=== PATIENT | female | born 1990 | race Hispanic/Latino ===

== ENCOUNTER 2019-11-03 16:23 | Emergency (ER) | payer OTHER ==
[2019-11-03 17:14] LABS: Absolute Lymphocytes (CBC) 0.5 K/uL (0.7-4.9); Basophils % 0.4 % (0-1.3); Hematocrit 41.6 % (36.0-45.0); Lymphocytes % 4.3 % (15.3-44.8); MPV 7.2 fL (7.6-11.3); RBC Red Blood Cell Count 5.28 M/uL (3.86-4.86)
[2019-11-03] MEDS ORDERED: MORPHINE 2 MG/ML SYR ONE (17:15)
[2019-11-03] MEDS ORDERED: ONDANSETRON 4 MG/2 ML VIAL ONE ×2 (17:15→19:32)
[2019-11-03] MEDS ORDERED: LORazepam 2 MG/ML VIAL ONE (17:15)
[2019-11-03] MEDS ORDERED: NA CHLORIDE 0.9% 1,000 ML ONE (17:18)
[2019-11-03 17:35] LABS: Blood Morphology Comment NOT SEEN (NOT SEEN); Platelet Estimate ADEQ; Urine White Blood Cell Casts OK
[2019-11-03] MEDS ORDERED: NA CHLORIDE 0.9% 200 ML IV ONE (17:36)
[2019-11-03] MEDS ORDERED: CEFTRIAXONE/SWI 1gm 1 GM/10 ML SYR ONE (17:37)
[2019-11-03 18:25] LABS: ALT/SGPT 24 U/L (12-78); AST/SGOT 18 U/L (15-37); Albumin 3.7 g/dL (3.4-5.0); Alkaline Phosphatase 99 U/L (45-117); BUN Blood Urea Nitrogen 8 mg/dL (7-18); Bicarbonate 26 mmol/L (21-32); Bilirubin Direct 0.2 mg/dL (0-0.2); Glucose Level 114 mg/dL (74-106); Lipase 67 U/L (73-393); Potassium 3.3 mmol/L (3.5-5.1); Protein, Total 8.2 g/dL (6.4-8.2); Sodium Level 138 mmol/L (136-145)
[2019-11-03 18:56] LABS: Urine Blood 1+ (NEG); Urine Glucose NEGATIVE (NEG); Urine Protein 2+ (NEG)
--- NOTE | 2019-11-03 18:56 | RAD REPORT ---
EXAM DESCRIPTION: US - Abdomen Exam Limited - 11/03/2019 6:20 pm CLINICAL HISTORY: EPIGASTRIC PAIN COMPARISON: No comparisons FINDINGS: No gallstones, sludge or other abnormalities within the gallbladder lumen. There is no wal l thickening or pericholecystic fluid. No common duct stone or biliary tree dilatation identified. IMPRESSION: Normal gallbladder and biliary tree ultrasound.
--- NOTE | 2019-11-03 19:06 | RAD REPORT ---
EXAM DESCRIPTION: CT - Abdomen Pelvis W Contrast - 11/03/2019 6:55 pm CLINICAL HISTORY: abdominal pain, fever, vomiting COMPARISON: No comparisons TECHNIQUE: Biphasic, helical CT imaging of the abdomen and pelvis was performed following 100 ml non -ionic IV contrast. No oral contrast administered. All CT scans are performed using dose optimization technique as appropriate and may include automated exposure control or mA/KV adjustment according to patient size. FINDINGS: No suspicious findings in the lung bases. No focal abnormality of the liver, spleen or pancreas. Liver attenuation is borderline to mild fatty infiltration. Gallbladder and biliary tree are also without suspicious finding. Gallstones can be occ ult on CT imaging. Earlier ultrasound of the gallbladder was unremarkable. Symmetric renal function is seen with no hydronephrosis or suspicious renal mass. No pyelonephritis o r acute parenchymal process. No bladder abnormalities. No adrenal abnormalities. Uterus and ovaries s how no suspicious findings. No dilated bowel loops or bowel wall thickening. No appendicitis findings. A few small mesenteric lym ph nodes are present. No free air, free fluid or inflammatory stranding. No hernia, mass or bulky ly mphadenopathy. No suspicious bony findings. IMPRESSION: Mild mesenteric adenitis or nonspecific enteritis pattern. No appendicitis or surgically emergent finding.
[2019-11-03 19:30] LABS: Urine Bacteria 20-50 /HPF (<20); Urine Culture Reflex Order REFLEXED; Urine Mucus 2+ /HPF (NONE SEEN)
[2019-11-03] MEDS ORDERED: ACETAMINOPHEN 500 MG TAB ONE (19:32)
[2019-11-03] MEDS ORDERED: IBUPROFEN 400 MG TAB ONE (20:27)
--- NOTE | 2019-11-03 21:21 | ER ---
Nurse's Notes [facility] Name: Fannie Mullins Age: 29 yrs Sex: Female : 1990 Arrival Date: 11/03/2019 Time: 16:26 Bed 19 Private MD: Diagnosis: Vomiting;Urinary tract infection, site not specified Presentation: 11/02 16:38 Chief complaint: Patient states: has had n/v and upper abd pain since yesterday, iw couldn't hold anything down last night, fever last night of 102, denies cough, SOB, denies urinary s/s. Coronavirus screen: Patient denies fever greater than 100.4F, cough, shortness of breath, or difficulty breathing. Proceed with normal triage process. Ebola Screen: Patient negative for fever greater than or equal to 101.5 degrees Fahrenheit, and additional compatible Ebola Virus Disease symptoms Patient denies exposure to infectious person. Patient denies travel to an Ebola-affected area in the 21 days before illness onset. No symptoms or risks identified at this time. Initial Sepsis Screen: Does the patient meet any 2 criteria? No. Patient's initial sepsis screen is negative. Does the patient have a suspected source of infection? No. Patient's initial sepsis screen is negative. Risk Assessment: Do you want to hurt yourself or someone else? Patient reports no desire to harm self or others. 16:38 Method Of Arrival: Ambulatory iw 16:38 Acuity: DARWIN 3 iw 17:06 Onset of symptoms was November 03, 2019. ca1 17:17 Acuity: DARWIN 2 ca1 [employer]: 17:30 LMP 10/20/2019 ca1 Historical: - Allergies: 16:41 robitussin; iw - Home Meds: 16:41 None [Active]; iw - PMHx: 16:41 None; iw - PSHx: 16:41 ; iw - Immunization history:: Adult Immunizations. - Social history:: Smoking status: . Screenin:04 Abuse screen: Denies threats or abuse. Denies injuries from another. Nutritional ca1 screening: No deficits noted. Tuberculosis screening: No symptoms or risk factors identified. Fall Risk IV access (20 points). Assessment: 17:04 General: Appears in no apparent distress. comfortable, Behavior is calm, cooperative, ca1 appropriate for age. Pain: Complains of pain in epigastric area, right upper quadrant and left upper quadrant Pain radiates to back Pain currently is 7 out of 10 on a pain scale. Pain began 1 day ago. Is intermittent. Neuro: Level of Consciousness is awake, alert, obeys commands, Oriented to person, place, time, situation, Appropriate for age. Cardiovascular: Heart tones S1 S2 present Capillary refill < 3 seconds Patient's skin is warm and dry. Respiratory: Airway is patent Respiratory effort is even, unlabored, Respiratory pattern is regular, symmetrical, Breath sounds are clear bilaterally. GI: Abdomen is round non-distended, Bowel sounds present X 4 quads. Abd is soft X 4 quads Abdomen is tender to palpation in epigastric area Reports nausea, vomiting, since yesterday. : No signs and/or symptoms were reported regarding the genitourinary system. EENT: No signs and/or symptoms were reported regarding the EENT system. Derm: Skin is intact, is healthy with good turgor, Skin is pink, warm \T\ dry. Musculoskeletal: Circulation, motion, and sensation intact. Capillary refill < 3 seconds. 18:04 Reassessment: Patient appears in no apparent distress at this time. Patient and/or ca1 family updated on plan of care and expected duration. Pain level reassessed. Patient is alert, oriented x 3, equal unlabored respirations, skin warm/dry/pink. US at bedside. 18:45 Reassessment: PT to CT via wheelchair. ca1 19:10 Reassessment: Patient appears in no apparent distress at this time. Patient and/or jb4 family updated on plan of care and expected duration. Pain level reassessed. Patient is alert, oriented x 3, equal unlabored respirations, skin warm/dry/pink. 20:00 Reassessment: Patient appears in no apparent distress at this time. Patient and/or jb4 family updated on plan of care and expected duration. Pain level reassessed. Patient is alert, oriented x 3, equal unlabored respirations, skin warm/dry/pink. 21:10 Reassessment: Patient appears in no apparent distress at this time. Patient and/or jb4 family updated on plan of care and expected duration. Pain level reassessed. Patient is alert, oriented x 3, equal unlabored respirations, skin warm/dry/pink. Patient states feeling better. 21:45 Reassessment: Patient appears in no apparent distress at this time. Patient and/or jb4 family updated on plan of care and expected duration. Pain level reassessed. Patient is alert, oriented x 3, equal unlabored respirations, skin warm/dry/pink. Pt reports feeling better. Verbalized understanding of d/c and follow up instructions. Denies questions or concerns. Ambulated out of ED with steady gait. Vital Signs: 16:38 BP 147 / 80; Pulse 125; Resp 16 S; Temp 99.5(O); Pulse Ox 99% on R/A; Weight 104.33 kg; iw Height 5 ft. 5 in. (165.10 cm); Pain 6/10; 17:10 BP 138 / 79; Pulse 129; Resp 17; Temp 100.9(O); Pulse Ox 98% on R/A; mh5 18:04 BP 114 / 61; Pulse 118; Resp 20; Pulse Ox 100% on R/A; ca1 18:30 Temp 98.2(O); ca1 19:10 BP 119 / 74; Pulse 115; Resp 20 S; Pulse Ox 99% on R/A; ca1 19:11 Temp 102.0(O); ca1 20:00 BP 126 / 95; Pulse 102; Resp 18; Pulse Ox 98% on R/A; jb4 20:51 BP 108 / 62; Pulse 97; Resp 18; Temp 99.8(O); Pulse Ox 98% on R/A; jb4 16:38 Body Mass Index 38.27 (104.33 kg, 165.10 cm) ED Course: 16:26 Patient arrived in ED. fj1 16:36 Jamar Caldera PA is PHCP. [facility] 16:36 John Mullen MD is Attending Physician. [facility] 16:40 Triage completed. iw 16:41 Arm band placed on. iw 16:43 Genny Theodore, RN is Primary Nurse. ca1 17:04 Patient has correct armband on for positive identification. Bed in low position. Call ca1 light in reach. Side rails up X2. Pulse ox on. NIBP on. Warm blanket given. 17:04 No provider procedures requiring assistance completed. ca1 17:09 Basic Metabolic Panel Sent. mh5 17:09 CBC with Diff Sent. mh5 17:09 Hepatic Function Sent. mh5 17:09 Lipase Sent. mh5 17:09 Initial lab(s) drawn, by me, sent to lab. Inserted saline lock: 22 gauge in left [facility] antecubital area, using aseptic technique. 17:46 Basic Metabolic Panel Sent. [facility] 17:46 Hepatic Function Sent. [facility] 17:46 Lipase Sent. [facility] 17:47 First set of blood cultures drawn by lab staff. ca1 17:57 Inserted saline lock: 20 gauge in right antecubital area, using aseptic technique. ca1 Blood collected. 17:57 Lab(s) recollected, by me, sent to lab. Second set of blood cultures drawn by me. ca1 18:06 Radiology exam delayed due to lab results not completed at this time. (BUN/Creatinine). nj 18:07 Radiology exam delayed due to test not completed at this time. nj 18:17 US Abdomen Limited In Process Unspecified. EDMS 18:53 Urine collected: clean catch specimen, clear. 5 18:55 CT Abd/Pelvis - IV Contrast Only In Process Unspecified. EDMS 21:45 IV discontinued, intact, bleeding controlled, No redness/swelling at site. Pressure jb4 dressing applied. 21:58 Tej Dhaliwal, RN is Primary Nurse. jb4 Administered Medications: 17:18 Drug: NS 0.9% (30 ml/kg) 30 ml/kg Route: IV; Rate: bolus; Site: left forearm; ca1 17:19 Drug: Zofran (Ondansetron) 4 mg Route: IVP; Site: left forearm; ca1 18:00 Follow up: Response: No adverse reaction; Nausea is decreased ca1 17:21 Drug: morphine 2 mg {Note: RASS - 0.} Route: IVP; Site: left forearm; ca1 18:00 Follow up: Response: No adverse reaction; Pain is decreased; RASS: Alert and Calm (0) ca1 17:25 Drug: Ativan 1 mg Route: IVP; Site: left forearm; ca1 18:00 Follow up: Response: No adverse reaction; Marked relief of symptoms; Anxiety decreased ca1 17:57 Drug: Rocephin - (cefTRIAXone) 1 grams Route: IVPB; Infused Over: 30 mins; Site: right ca1 antecubital; 18:20 Follow up: Response: No adverse reaction; IV Status: Completed infusion ca1 19:30 Drug: Zofran (Ondansetron) 4 mg Route: IVP; Site: right antecubital; jb4 19:40 Follow up: Response: No adverse reaction; Nausea is decreased jb4 20:00 Follow up: Response: No adverse reaction; Nausea is decreased jb4 19:40 Drug: Tylenol 1000 mg Route: PO; jb4 21:40 Follow up: Response: No adverse reaction; Temperature is decreased jb4 20:24 Drug: Motrin 800 mg Route: PO; jb4 21:40 Follow up: Response: No adverse reaction; Temperature is decreased jb4 Outcome: 21:20 Discharge ordered by . crystal 21:45 Discharged to home ambulatory. jb4 21:45 Condition: stable 21:45 Discharge instructions given to patient, Instructed on discharge instructions, follow up and referral plans. medication usage, Demonstrated understanding of instructions, follow-up care, medications, Prescriptions given X 3. 21:59 Patient left the ED. jb4 Signatures: Dispatcher [employer] EDMS Jamar Caldera PA PA jmm Williams, Irene, RN RN iw Bryson, James, RN RN [facility] Hermes Hdez Maria [facility] Genny Theodore RN TORIE ca1 Lenny Burnham fj Corrections: (The following items were deleted from the chart) 18:56 17:09 Creatinine for Radiology+C.LAB.BRZ drawn and sent. [facility] EDWA 18:56 17:46 Creatinine for Radiology+C.LAB.BRZ drawn and sent. [address]
--- NOTE | 2019-11-03 21:21 | EDPHYS ---
Physician Documentation [facility] Name: Fannie Mullins Age: 29 yrs Sex: Female : 1990 Arrival Date: 11/03/2019 Time: 16:26 Bed 19 Private MD: ED Physician John Mullen HPI: 11/02 16:59 This 29 yrs old Female presents to ER via Ambulatory with complaints of jmm Nausea, Fever. 16:59 The patient presents to the emergency department with nausea, vomiting, abdominal pain, jmm of the right upper quadrant. Onset: The symptoms/episode began/occurred gradually, 1 day(s) ago. The symptoms are aggravated by nothing. The symptoms are alleviated by nothing. This is a 29 year old female with no chronic medical conditions that presents to the ED with complaints of epigastric abdominal pain beginning last night with vomiting and fever. Patient denies Sore throat, cough. . [employer]: 17:30 LMP 10/20/2019 ca1 Historical: - Allergies: 16:41 robitussin; iw - Home Meds: 16:41 None [Active]; iw - PMHx: 16:41 None; iw - PSHx: 16:41 ; iw - Immunization history:: Adult Immunizations. - Social history:: Smoking status: . ROS: 16:59 Constitutional: Positive for body aches, fever. jmm 16:59 Respiratory: Negative for cough. 16:59 Abdomen/GI: Positive for abdominal pain, nausea and vomiting. 16:59 All other systems are negative. Exam: 16:59 Constitutional: This is a well developed, well nourished patient who is awake, alert, jmm and in no acute distress. Head/Face: atraumatic. Eyes: EOMI, no conjunctival erythema appreciated ENT: Moist Mucus Membranes Neck: Trachea midline, Supple Chest/axilla: Normal chest wall appearance and motion. Cardiovascular: Regular rate and rhythm. No edema appreciated Respiratory: Normal respirations, no respiratory distress appreciated 16:59 Back: Normal ROM Skin: General appearance color normal MS/ Extremity: Moves all extremities, no obvious deformities appreciated, no edema noted to the lower extremities Neuro: Awake and alert, normal gait Psych: Behavior is normal, Mood is normal, Patient is cooperative and pleasant 16:59 Abdomen/GI: Inspection: abdomen appears normal, Bowel sounds: normal, Palpation: soft, in all quadrants. Vital Signs: 16:38 BP 147 / 80; Pulse 125; Resp 16 S; Temp 99.5(O); Pulse Ox 99% on R/A; Weight 104.33 kg; iw Height 5 ft. 5 in. (165.10 cm); Pain 6/10; 17:10 BP 138 / 79; Pulse 129; Resp 17; Temp 100.9(O); Pulse Ox 98% on R/A; mh5 18:04 BP 114 / 61; Pulse 118; Resp 20; Pulse Ox 100% on R/A; ca1 18:30 Temp 98.2(O); ca1 19:10 BP 119 / 74; Pulse 115; Resp 20 S; Pulse Ox 99% on R/A; ca1 19:11 Temp 102.0(O); ca1 20:00 BP 126 / 95; Pulse 102; Resp 18; Pulse Ox 98% on R/A; jb4 20:51 BP 108 / 62; Pulse 97; Resp 18; Temp 99.8(O); Pulse Ox 98% on R/A; jb4 16:38 Body Mass Index 38.27 (104.33 kg, 165.10 cm) iw MDM: 16:59 Patient medically screened. [facility] 21:19 Data reviewed: vital signs, nurses notes. Counseling: I had a detailed discussion with crystal the patient and/or guardian regarding: the historical points, exam findings, and any diagnostic results supporting the discharge/admit diagnosis, lab results, radiology results, the need for outpatient follow up, to return to the emergency department if symptoms worsen or persist or if there are any questions or concerns that arise at home. ED course: Patient is alert and non toxic in appearance in the ED. Patient can tolerate PO. Patient states feeling much better. Patient is given strict return precautions. Patient understood and agrees with the plan of care. . 11/02 16:52 Order name: Basic Metabolic Panel; Complete Time: 18:55 [facility] 11/02 16:52 Order name: CBC with Diff; Complete Time: 17:36 [facility] 11/02 16:52 Order name: Hepatic Function; Complete Time: 18:55 [facility] 11/02 16:52 Order name: Lipase; Complete Time: 18:55 [facility] 11/02 17:16 Order name: Lactate; Complete Time: 18:55 [facility] 11/02 16:58 Order name: US Abdomen Limited; Complete Time: 19:12 [facility] 11/02 17:16 Order name: Procalcitonin; Complete Time: 19:12 [facility] 11/02 17:16 Order name: Blood Culture Adult (2) [facility] 11/02 17:35 Order name: CBC Smear Scan; Complete Time: 17:36 [facility] 11/02 18:54 Order name: Urine Dipstick--Ancillary (enter results); Complete Time: 19:12 11/02 18:54 Order name: Urine --Ancillary (enter results); Complete Time: 19:12 11/02 18:55 Order name: Urine Microscopic Only; Complete Time: 19:53 11/02 19:32 Order name: Urine Culture [facility] 11/02 16:52 Order name: IV Saline Lock; Complete Time: 17:07 [facility] 11/02 16:52 Order name: Labs collected and sent; Complete Time: 17:07 [facility] 11/02 16:52 Order name: Urine Dipstick-Ancillary (obtain specimen); Complete Time: 18:47 [facility] 11/02 17:21 Order name: CT Abd/Pelvis - IV Contrast Only; Complete Time: 19:12 [facility] Administered Medications: 17:18 Drug: NS 0.9% (30 ml/kg) 30 ml/kg Route: IV; Rate: bolus; Site: left forearm; ca1 17:19 Drug: Zofran (Ondansetron) 4 mg Route: IVP; Site: left forearm; ca1 18:00 Follow up: Response: No adverse reaction; Nausea is decreased ca1 17:21 Drug: morphine 2 mg {Note: RASS - 0.} Route: IVP; Site: left forearm; ca1 18:00 Follow up: Response: No adverse reaction; Pain is decreased; RASS: Alert and Calm (0) ca1 17:25 Drug: Ativan 1 mg Route: IVP; Site: left forearm; ca1 18:00 Follow up: Response: No adverse reaction; Marked relief of symptoms; Anxiety decreased ca1 17:57 Drug: Rocephin - (cefTRIAXone) 1 grams Route: IVPB; Infused Over: 30 mins; Site: right ca1 antecubital; 18:20 Follow up: Response: No adverse reaction; IV Status: Completed infusion ca1 19:30 Drug: Zofran (Ondansetron) 4 mg Route: IVP; Site: right antecubital; jb4 19:40 Follow up: Response: No adverse reaction; Nausea is decreased jb4 20:00 Follow up: Response: No adverse reaction; Nausea is decreased jb4 19:40 Drug: Tylenol 1000 mg Route: PO; jb4 21:40 Follow up: Response: No adverse reaction; Temperature is decreased jb4 20:24 Drug: Motrin 800 mg Route: PO; jb4 21:40 Follow up: Response: No adverse reaction; Temperature is decreased jb4 Disposition: 11/03 07:10 Co-signature as Attending Physician, John Mullen MD. rn Disposition: 11/03/19 21:20 Discharged to Home. Impression: Vomiting, Urinary tract infection, site not specified. - Condition is Stable. - Discharge Instructions: Nausea and Vomiting, Adult, Urinary Tract Infection, Adult. - Prescriptions for Zofran ODT 4 mg Oral tablet,disintegrating - place 1 tablet by TRANSLINGUAL route every 4-6 hours; 20 tablet. Cephalexin 500 mg Oral Capsule - take 1 capsule by ORAL route every 12 hours for 10 days; 20 capsule. Tylenol- Codeine #3 300-30 mg Oral Tablet - take 1 tablet by ORAL route every 6 hours As needed; 20 tablet. - Medication Reconciliation Form, Thank You Letter, Antibiotic Education, Prescription Opioid Use form. - Work release form (11/04/19 17:14). iw - Follow up: Private Physician; When: 2 - 3 days; Reason: Recheck today's complaints, Continuance of care, Re-evaluation by your physician. Signatures: Dispatcher [employer] [facility] Jamar Caldera PA PA jmm Williams, Irene, TORIE VOGT iw John Mullen MD MD rn Bryson, James, RN RN jb4 Genny Theodore RN RN ca1 Corrections: (The following items were deleted from the chart) 11/02 18:56 16:53 Creatinine for Radiology+C.LAB.BRZ ordered. [facility] 21:59 21:20 11/03/2019 21:20 Discharged to Home. Impression: Vomiting; Urinary tract jb4 infection, site not specified. Condition is Stable. Forms are Medication Reconciliation Form, Thank You Letter, Antibiotic Education, Prescription Opioid Use. Follow up: Private Physician; When: 2 - 3 days; Reason: Recheck today's complaints, Continuance of care, Re-evaluation by your physician. crystal
[2019-11-03 22:18] VITALS: O2SAT 98
[2019-11-03 22:19] VITALS: BP 108/62; TEMP 99.8
== END 2019-11-03 21:59 | disposition home or self-care (01) ==
LOC: ER 16:23
DX: N39.0 Urinary tract infection, site not specified (principal); Z88.8 Allergy status to other drugs, medicaments and biological substances
CPT/HCPCS: 96365; 87040 ×2; 87088; 85025; 87086; 80048; 81025; 80076; 83605; 83690; 84145; 74177; 76705; 96375; 99284; Q9967; J2270; J0696; J7030; J2405 ×2; 81003; 81015

== ENCOUNTER 2020-04-01 03:13 | Emergency (ER) | payer SELFPAY ==
[2020-04-01] MEDS ORDERED: MORPHINE 4 MG/ML SYR ONE (03:54)
[2020-04-01 03:55] LABS: Absolute Lymphocytes (CBC) 2.5 K/uL (0.7-4.9); Basophils % 0.5 % (0-1.3); Hematocrit 40.6 % (36.0-45.0); MPV 7.1 fL (7.6-11.3); RBC Red Blood Cell Count 5.37 M/uL (3.86-4.86)
[2020-04-01] MEDS ORDERED: NA CHLORIDE 0.9% 1,000 ML ONE (03:55)
[2020-04-01] MEDS ORDERED: ONDANSETRON 4 MG/2 ML VIAL ONE (03:55)
[2020-04-01 04:06] LABS: ALT/SGPT 26 U/L (12-78); AST/SGOT 15 U/L (15-37); Albumin 3.5 g/dL (3.4-5.0); Alkaline Phosphatase 105 U/L (45-117); BUN Blood Urea Nitrogen 11 mg/dL (7-18); Bicarbonate 23 mmol/L (21-32); Bilirubin Direct < 0.1 mg/dL (0-0.2); Bilirubin Total 0.4 mg/dL (0.2-1.0); Glucose Level 97 mg/dL (74-106); Lipase 153 U/L (73-393); Potassium 3.8 mmol/L (3.5-5.1); Protein, Total 8.2 g/dL (6.4-8.2); Sodium Level 139 mmol/L (136-145)
--- NOTE | 2020-04-01 05:46 | EDPHYS ---
Physician Documentation [facility] Name: Fannie Mullins Age: 29 yrs Sex: Female : 1990 Arrival Date: 04/01/2020 Time: 03:13 Bed 19 Private MD: ED Physician Buck Delgado HPI: 04/01 03:39 This 29 yrs old Female presents to ER via Ambulatory with complaints of Side mh7 Pain. 03:39 The patient presents with abdominal pain in the left upper quadrant, in the left lower mh7 quadrant. Onset: The symptoms/episode began/occurred yesterday. The symptoms do not radiate. Associated signs and symptoms: Pertinent positives: nausea, Pertinent negatives: anorexia, blood in stools, chest pain, constipation, diarrhea, dysuria, fever, headache, hematuria, palpitations, shortness of breath, vaginal discharge, vomiting, vomiting blood. The symptoms are described as intermittent, sharp, waxing/waning. Modifying factors: The symptoms are alleviated by remaining still, the symptoms are aggravated by movement. Severity of pain: At its worst the pain was moderate last night, in the emergency department the pain has improved moderately. 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 - Social history:: Smoking status: Patient denies any tobacco usage or history of. ROS: 03:39 Constitutional: Negative for fever, chills, and weight loss, Eyes: Negative for injury, mh7 pain, redness, and discharge, ENT: Negative for injury, pain, and discharge, Neck: Negative for injury, pain, and swelling, Cardiovascular: Negative for chest pain, palpitations, and edema, Respiratory: Negative for shortness of breath, cough, wheezing, and pleuritic chest pain, Back: Negative for injury and pain, : Negative for injury, bleeding, discharge, and swelling, MS/Extremity: Negative for injury and deformity, Skin: Negative for injury, rash, and discoloration, Neuro: Negative for headache, weakness, numbness, tingling, and seizure, Psych: Negative for depression, anxiety, suicide ideation, homicidal ideation, and hallucinations, Allergy/Immunology: Negative for hives, rash, and allergies, Endocrine: Negative for neck swelling, polydipsia, polyuria, polyphagia, and marked weight changes, Hematologic/Lymphatic: Negative for swollen nodes, abnormal bleeding, and unusual bruising. Exam: 03:39 Head/Face: Normocephalic, atraumatic. Eyes: Pupils equal round and reactive to light, mh7 extra-ocular motions intact. Lids and lashes normal. Conjunctiva and sclera are non-icteric and not injected. Cornea within normal limits. Periorbital areas with no swelling, redness, or edema. Neck: Trachea midline, no thyromegaly or masses palpated, and no cervical lymphadenopathy. Supple, full range of motion without nuchal rigidity, or vertebral point tenderness. No Meningismus. Chest/axilla: Normal chest wall appearance and motion. Nontender with no deformity. No lesions are appreciated. Cardiovascular: Regular rate and rhythm with a normal S1 and S2. No gallops, murmurs, or rubs. Normal PMI, no JVD. No pulse deficits. Respiratory: Lungs have equal breath sounds bilaterally, clear to auscultation and percussion. No rales, rhonchi or wheezes noted. No increased work of breathing, no retractions or nasal flaring. 03:39 Back: No spinal tenderness. No costovertebral tenderness. Full range of motion. Skin: Warm, dry with normal turgor. Normal color with no rashes, no lesions, and no evidence of cellulitis. MS/ Extremity: Pulses equal, no cyanosis. Neurovascular intact. Full, normal range of motion. Neuro: Awake and alert, GCS 15, oriented to person, place, time, and situation. Cranial nerves II-XII grossly intact. Motor strength 5/5 in all extremities. Sensory grossly intact. Cerebellar exam normal. Normal gait. Psych: Awake, alert, with orientation to person, place and time. Behavior, mood, and affect are within normal limits. 03:39 Constitutional: The patient appears in no acute distress, alert, awake, uncomfortable. 03:39 Abdomen/GI: Inspection: abdomen appears normal, obese Bowel sounds: normal, in all quadrants, Palpation: moderate abdominal tenderness, in the left upper quadrant and left lower quadrant, Rectal exam: the exam is deferred, because of patient request, Indicators: McBurney's point is not tender, Wisdom's sign is negative, Rovsing's sign is negative, Obturator sign is negative, Psoas sign is negative, Liver: no appreciated palpable abnormalities, Hernia: not appreciated. Vital Signs: 03:26 BP 135 / 73; Pulse 98; Resp 18; Temp 98.7; Pulse Ox 100% ; Weight 111.13 kg; Height 5 rv ft. 5 in. (165.10 cm); Pain 0/10; 04:00 BP 112 / 56; Pulse 76; Resp 17; Pulse Ox 100% on R/A; rv 05:00 BP 99 / 42; Pulse 75; Resp 15; Pulse Ox 100% on R/A; rv 05:57 BP 115 / 66; Pulse 71; Resp 16; Temp 98.4; Pulse Ox 100% on R/A; rv 03:26 Body Mass Index 40.77 (111.13 kg, 165.10 cm) rv MDM: 03:38 Patient medically screened. [facility] 05:44 Differential diagnosis: bowel obstruction, diverticulitis, Ectopic , [facility] gastritis, gastroesophageal reflux disease, non-specific abd pain, pancreatitis, Peptic Ulcer Disease, Pyelonephritis, Ureterolithiasis, urinary tract infection. Data reviewed: vital signs, nurses notes, lab test result(s), CBC, electrolytes, urinalysis, radiologic studies, CT scan. Data interpreted: Pulse oximetry: on room air is 100 %. Interpretation: normal. Counseling: I had a detailed discussion with the patient and/or guardian regarding: the historical points, exam findings, and any diagnostic results supporting the discharge/admit diagnosis, lab results, radiology results, the need for outpatient follow up, to return to the emergency department if symptoms worsen or persist or if there are any questions or concerns that arise at home. Response to treatment: the patient's symptoms have resolved after treatment, the patient's blood pressure is in an acceptable range, mental status has returned to baseline, the patient no longer shows bradycardia, the patient is not short of breath, the patient is not tachycardic, the patient's pain is gone, the patient's temperature has normalized. 06:45 Response to treatment: the patient is now symptom free, patient is well hydrated. [facility] 04/01 03:31 Order name: Basic Metabolic Panel; Complete Time: 04:12 04/01 03:31 Order name: CBC with Diff; Complete Time: 04:06 04/01 03:31 Order name: Hepatic Function; Complete Time: 04:12 04/01 03:31 Order name: Lipase; Complete Time: 04:12 04/01 04:51 Order name: Urine Dipstick--Ancillary (enter results) [facility] 04/01 04:51 Order name: Urine --Ancillary (enter results) [facility] 04/01 03:31 Order name: IV Saline Lock; Complete Time: 03:31 04/01 03:31 Order name: Labs collected and sent; Complete Time: 03:31 04/01 03:39 Order name: Urine Dipstick-Ancillary (obtain specimen); Complete Time: 03:55 [facility] 04/01 03:39 Order name: Urine Test (obtain specimen); Complete Time: 03:55 [facility] 04/01 04:12 Order name: CT Abd/Pelvis - IV Contrast Only [facility] Administered Medications: 04:58 Drug: NS 0.9% 1000 ml Route: IV; Rate: 1000 ml; Site: left antecubital; rv 05:35 Follow up: IV Status: Completed infusion; IV Intake: 1000ml rv 05:33 Drug: Zofran (Ondansetron) 4 mg Route: IVP; Site: left antecubital; rv 05:56 Follow up: Response: No adverse reaction rv 05:57 Not Given (Patient Refused): morphine 4 mg IVP once; RASS on ADMIN: Combtv4, Very rv Agttd3, Agttd2, Rstlss1, AlertClm0, Drwsy-1, Lt Sdtn-2, Mod Sdtn-3, Dp Sdtn-4, UnArsble-5 Disposition: 06:45 Co-signature as Attending Physician, Buck Delgado MD. [facility] Disposition: 04/01/20 05:46 Discharged to Home. Impression: Abdominal Pain, Vomiting. - Condition is Stable. - Discharge Instructions: Nausea and Vomiting, Adult, Vath-bj-Amsf, Abdominal Pain, Adult, Bqnh-ce-Uzsl, Uterine Fibroids, Cosc-ep-Lnzq. - Prescriptions for Zofran ODT 4 mg Oral tablet,disintegrating - place 1 tablet by TRANSLINGUAL route every 8 hours As needed; 10 tablet. Bentyl 20 mg Oral Tablet - take 1 tablet by ORAL route every 6 hours As needed; 20 tablet. Pepcid 20 mg Oral Tablet - take 1 tablet by ORAL route every 12 hours for 5 days; 10 tablet. - Work release form, Medication Reconciliation Form, Thank You Letter, Antibiotic Education, Prescription Opioid Use form. - Follow up: Private Physician; When: 1 - 2 days; Reason: Worsening of condition, Recheck today's complaints, Continuance of care, Re-evaluation by your physician. - Problem is new. - Symptoms have improved. Signatures: Dispatcher [employer] EDMS Ian Munoz RN RN rv Buck Delgado MD MD mh7 Corrections: (The following items were deleted from the chart) 05:58 05:46 04/01/2020 05:46 Discharged to Home. Impression: Abdominal Pain; Vomiting. rv Condition is Stable. Forms are Medication Reconciliation Form, Thank You Letter, Antibiotic Education, Prescription Opioid Use. Follow up: Private Physician; When: 1 - 2 days; Reason: Worsening of condition, Recheck today's complaints, Continuance of care, Re-evaluation by your physician. Problem is new. Symptoms have improved. mh7
--- NOTE | 2020-04-01 05:46 | ER ---
Nurse's Notes [facility] Name: Fannie Mullins Age: 29 yrs Sex: Female : 1990 Arrival Date: 04/01/2020 Time: 03:13 Bed 19 Private MD: Diagnosis: Abdominal Pain;Vomiting Presentation: 04/01 03:26 Chief complaint: Patient states: COMPLAINING OF LEFT SIDE PAIN. 10, ON AND OFF. rv DESCRIBED CONTRACTIONS AND SHARP, ACCOMPANIED BY NAUSEA AND VOMITING. DENIES DIARRHEA AND CONSTIPATION. Coronavirus screen: Client denies travel out of the [place] in the last 14 days. At this time, the client does not indicate any symptoms associated with coronavirus-19. Ebola Screen: No symptoms or risks identified at this time. Initial Sepsis Screen: Does the patient meet any 2 criteria? No. Patient's initial sepsis screen is negative. Does the patient have a suspected source of infection? No. Patient's initial sepsis screen is negative. Risk Assessment: Do you want to hurt yourself or someone else? Patient reports no desire to harm self or others. Onset of symptoms was March 31, 2020 at 15:00. 03:26 Method Of Arrival: Ambulatory rv 03:26 Acuity: DARWIN 3 rv Triage Assessment: 03:28 General: Appears comfortable, Behavior is calm, cooperative. Pain: Complains of pain in rv left upper quadrant Pain currently is 0 out of 10 on a pain scale. at worst was 10 out of 10 on a pain scale. Quality of pain is described as crampy, sharp, Is intermittent. EENT: No signs and/or symptoms were reported regarding the EENT system. Neuro: Level of Consciousness is awake, alert, obeys commands, Oriented to person, place, time, situation. Cardiovascular: Patient's skin is warm and dry. Respiratory: Airway is patent Respiratory effort is even, unlabored. GI: Abdomen is round non-distended, Reports upper abdominal pain, nausea, vomiting, Patient currently denies constipation, diarrhea. : No signs and/or symptoms were reported regarding the genitourinary system. Derm: Skin is intact. 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 - Social history:: Smoking status: Patient denies any tobacco usage or history of. Screenin:30 Abuse screen: Denies threats or abuse. Denies injuries from another. Nutritional rv screening: No deficits noted. Tuberculosis screening: No symptoms or risk factors identified. Fall Risk None identified. Assessment: 04:03 Reassessment: patient refused the medications at the moment. denies pain and nausea. rv Vital Signs: 03:26 BP 135 / 73; Pulse 98; Resp 18; Temp 98.7; Pulse Ox 100% ; Weight 111.13 kg; Height 5 rv ft. 5 in. (165.10 cm); Pain 0/10; 04:00 BP 112 / 56; Pulse 76; Resp 17; Pulse Ox 100% on R/A; rv 05:00 BP 99 / 42; Pulse 75; Resp 15; Pulse Ox 100% on R/A; rv 05:57 BP 115 / 66; Pulse 71; Resp 16; Temp 98.4; Pulse Ox 100% on R/A; rv 03:26 Body Mass Index 40.77 (111.13 kg, 165.10 cm) rv ED Course: 03:13 Patient arrived in ED. cf2 03:16 Ian Munoz, TORIE is Primary Nurse. rv 03:18 Buck Delgado MD is Attending Physician. mh7 03:28 Triage completed. rv 03:30 Arm band placed on Patient placed in the treatment room, on a stretcher, Patient rv notified of wait time. 03:31 Patient has correct armband on for positive identification. Pulse ox on. NIBP on. rv 03:31 Initial lab(s) drawn, by ED staff, sent to lab. Inserted saline lock: 20 gauge in left rv antecubital area, using aseptic technique. Blood collected. 04:37 Inserted saline lock: 20 gauge in left antecubital area, using aseptic technique. vc 04:57 CT Abd/Pelvis - IV Contrast Only In Process Unspecified. EDMS 05:57 No provider procedures requiring assistance completed. IV discontinued, intact, rv bleeding controlled, No redness/swelling at site. Pressure dressing applied. Administered Medications: 04:58 Drug: NS 0.9% 1000 ml Route: IV; Rate: 1000 ml; Site: left antecubital; rv 05:35 Follow up: IV Status: Completed infusion; IV Intake: 1000ml rv 05:33 Drug: Zofran (Ondansetron) 4 mg Route: IVP; Site: left antecubital; rv 05:56 Follow up: Response: No adverse reaction rv 05:57 Not Given (Patient Refused): morphine 4 mg IVP once; RASS on ADMIN: Combtv4, Very rv Agttd3, Agttd2, Rstlss1, AlertClm0, Drwsy-1, Lt Sdtn-2, Mod Sdtn-3, Dp Sdtn-4, UnArsble-5 Intake: 05:35 IV: 1000ml; Total: 1000ml. rv Outcome: 05:46 Discharge ordered by MD. deshpande 05:57 Discharged to home ambulatory. rv 05:57 Condition: good 05:57 Discharge instructions given to patient, Instructed on discharge instructions, follow up and referral plans. medication usage, Demonstrated understanding of instructions, follow-up care, medications, Prescriptions given X 3. 05:58 Patient left the ED. rv Signatures: Dispatcher [employer] EDMS Ian Munoz RN RN rv Olivier Peraza cf2 Sandra Grady RN RN vc Holmes, Maurice, MD MD 7
[2020-04-01 06:18] LABS: Urine Glucose NEGATIVE (NEG); Urine Specific Gravity >1.030 (1.005-1.030)
[2020-04-01 06:19] LABS: Urine Blood TRACE (NEG); Urine Protein TRACE (NEG)
--- NOTE | 2020-04-01 11:41 | RAD REPORT ---
EXAM DESCRIPTION: CT - Abdomen Pelvis W Contrast - 04/01/2020 7:39 am CLINICAL HISTORY: The patient is 29 years old and is Female; ABD PAIN TECHNIQUE: Axial computed tomography images of the abdomen and pelvis with intravenous contrast. S agittal and coronal reformatted images were created and reviewed. This CT exam was performed using one or more of the following dose reduction techniques: automated exposure control, adjustment of t he mA and/or kV according to patient size, and/or use of iterative reconstruction technique. COMPARISON: CT abdomen and pelvis with contrast November 03, 2019. FINDINGS: Lung bases: Unremarkable. No mass. No consolidation. ABDOMEN: Liver: Unremarkable. No mass. Gallbladder and bile ducts: Unremarkable. No calcified stones. No ductal dilation. Pancreas: No findings to suggest acute pancreatitis. No mass visualized. No ductal dilation. Spleen: Unremarkable. No splenomegaly. Adrenals: Unremarkable. No mass. Kidneys and ureters: No ureter stone. No solid mass. No hydronephrosis. Stomach and bowel: No bowel dilatation or obstruction. No bowel wall thickening. PELVIS: Appendix: The visualized appendix is normal. No pericecal inflammation to suggest acute appendic itis. Bladder: Unremarkable. No mass. Reproductive: 2.8 cm anterior subserosal uterine fibroid. Ovaries are unremarkable. ABDOMEN and PELVIS: Intraperitoneal space: Unremarkable. No free air. No significant fluid collection. Bones/joints: No acute fracture. No dislocation. Soft tissues: Umbilical hernia containing fat only. No evidence of edema/incarceration. Vasculature: Unremarkable. No abdominal aortic aneurysm. Lymph nodes: No pathologically enlarged lymph nodes. IMPRESSION: 1. No acute obstructive or inflammatory process identified. Normal appendix. 2. Uterine fibroid. Electronically signed by: Gely Lay MD 04/01/2020 5:09 AM CDT Due to temporary technical issues with the PACS/Fluency reporting system, reports are being signed by the in house radiologist without review as a courtesy to ensure prompt reporting. The interpreting r adiologist is fully responsible for the content of the report.
== END 2020-04-01 05:58 | disposition home or self-care (01) ==
LOC: ER 03:13
DX: R11.10 Vomiting, unspecified (principal); Z88.8 Allergy status to other drugs, medicaments and biological substances
CPT/HCPCS: 36415; 74177; 80048; 80076; 81003; 81025; 83690; 85025; 96361; 96374; 99284; J2405; J7030; Q9967

== ENCOUNTER → 2023-10-14 | Emergency (ER) | payer OTHER, SELFPAY ==
--- NOTE | 2023-10-15 01:24 | ER ---
Nurse's Notes [facility] Name: Fannie Mullins Age: 33 yrs Sex: Female : 1990 Arrival Date: 10/14/2023 Time: 21:47 Bed IW9 Private MD: Diagnosis: Vaginal bleeding, uterine fibroid Presentation: 10/13 22:08 Chief complaint: Patient states: Pt c/o low abdominal pain with light vaginal bleeding tl4 today. Pt states bleeding started after having sex. Pt had positive test approx 2 weeks ago. Pt denies N/V. Coronavirus screen: At this time, the client does not indicate any symptoms associated with coronavirus-19. Ebola Screen: No symptoms or risks identified at this time. Initial Sepsis Screen: Does the patient meet any 2 criteria? No. Patient's initial sepsis screen is negative. Does the patient have a suspected source of infection? No. Patient's initial sepsis screen is negative. Risk Assessment: Do you want to hurt yourself or someone else? Patient reports no desire to harm self or others. Onset of symptoms was October 14, 2023. 22:08 Method Of Arrival: Ambulatory tl4 22:08 Acuity: DARWIN 3 tl4 Triage Assessment: 22:13 General: Appears in no apparent distress. Behavior is calm, cooperative. Pain: tl4 Complains of pain in abdomen. EENT: No deficits noted. No signs and/or symptoms were reported regarding the EENT system. Neuro: No deficits noted. Cardiovascular: No deficits noted. Respiratory: No deficits noted. GI: Reports lower abdominal pain. : No deficits noted. No signs and/or symptoms were reported regarding the genitourinary system. Derm: No deficits noted. No signs and/or symptoms reported regarding the dermatologic system. Musculoskeletal: No deficits noted. No signs and/or symptoms reported regarding the musculoskeletal system. Historical: - Allergies: 22:12 ROBITUSSIN; tl4 - Home Meds: 22:12 None [Active]; tl4 - PMHx: 22:12 None; tl4 - Immunization history:: Adult Immunizations unknown. - Social history:: Smoking status: unknown. - Family history:: not pertinent. Assessment: 23:30 Reassessment: Patient called from tricia, no response. pf1 10/14 00:00 Reassessment: Patient called from tricia, no response. pf1 Vital Signs: 10/13 22:08 BP 133 / 80; Pulse 91; Resp 18; Temp 98.1(O); Pulse Ox 100% ; Weight 108.86 kg; Height tl4 5 ft. 5 in. ; Pain 0/10; 22:08 Body Mass Index 39.94 (108.86 kg, 165.1 cm) tl4 22:08 Pain Scale: Adult tl4 ED Course: 21:49 Patient arrived in ED. jj6 21:53 Efren Fitzpatrick MD is Attending Physician. sp4 22:12 Triage completed. tl4 22:14 Arm band placed on right wrist. tl4 22:48 Transvaginal OB In Process Unspecified. EDMS Administered Medications: No medications were administered Outcome: 10/14 00:00 Eloped from waiting room, after seeing physician Time discovered patient gone: September pf1 2023 at 23:30 03:12 Patient left the ED. pf1 Signatures: Dispatcher [employer] EDMS Alexandra Castro Pamala, RN RN pf1 Efren Fitzpatrick MD MD sp4 Manuel Rod RN RN tl4
--- NOTE | 2023-10-15 01:24 | EDPHYS ---
Physician Documentation [facility] Name: Fannie Mullins Age: 33 yrs Sex: Female : 1990 Arrival Date: 10/14/2023 Time: 21:47 Bed IW9 Private MD: ED Physician Efren Fitzpatrick HPI: 10/13 21:53 This 33 yrs old Female presents to ER via Unassigned with complaints of sp4 Abdominal Pain, Vaginal Bleeding. 22:07 33-year-old female -0-1-1 EGA 6 weeks 3 days by LMP, LMP 08/30/2023 positive sp4 test at home presents with acute onset of vaginal bleeding today just prior to arrival. Also reporting some degree of lower pelvic pain. Patient is here for evaluation. Historical: - Allergies: 22:12 ROBITUSSIN; tl4 - Home Meds: 22:12 None [Active]; tl4 - PMHx: 22:12 None; tl4 - Immunization history:: Adult Immunizations unknown. - Social history:: Smoking status: unknown. - Family history:: not pertinent. ROS: 22:07 Constitutional: Negative for fever, chills, and weight loss, positive pelvic pain , sp4 positive vaginal bleeding, positive 22:07 All other systems are negative, Exam: 22:07 Constitutional: This is a well developed, well nourished patient who is awake, alert, sp4 and in no acute distress. Head/Face: Normocephalic, atraumatic. Eyes: Pupils equal round and reactive to light, extra-ocular motions intact. Lids and lashes normal. Conjunctiva and sclera are not injected. Cornea within normal limits. Periorbital areas with no swelling, redness, or edema. ENT: Nares patent. No nasal discharge, no septal abnormalities noted. Tympanic membranes are normal and external auditory canals are clear. Oropharynx with no redness, swelling, or masses, exudates, or evidence of obstruction, uvula midline. Mucous membranes moist. Neck: Trachea midline, no thyromegaly or masses palpated, and no cervical lymphadenopathy. Supple, full range of motion without nuchal rigidity, or vertebral point tenderness. Chest/axilla: Normal chest wall appearance and motion. Nontender with no deformity. No lesions are appreciated. Cardiovascular: Regular rate and rhythm with a normal S1 and S2. No gallops, murmurs, or rubs. Normal PMI, no JVD. No pulse deficits. Respiratory: Lungs have equal breath sounds bilaterally, clear to auscultation and percussion. No rales, rhonchi or wheezes noted. No increased work of breathing, no retractions or nasal flaring. Abdomen/GI: Soft, with normal bowel sounds. No distension or tympany. No guarding or rebound. No evidence of tenderness throughout. Back: No spinal tenderness. No costovertebral tenderness. Skin: Warm, dry with normal turgor. Normal color with no rashes, no lesions, and no evidence of cellulitis. MS/ Extremity: Pulses equal, no cyanosis. Neurovascular intact. Full, normal range of motion. Neuro: Awake and alert, GCS 15, oriented to person, place, time, and situation. Cranial nerves II-XII grossly intact. Motor strength 5/5 in all extremities. Sensory grossly intact. Psych: Awake, alert, with orientation to person, place and time. Behavior, mood, and affect are within normal limits Vital Signs: 22:08 BP 133 / 80; Pulse 91; Resp 18; Temp 98.1(O); Pulse Ox 100% ; Weight 108.86 kg; Height tl4 5 ft. 5 in. ; Pain 0/10; 22:08 Body Mass Index 39.94 (108.86 kg, 165.1 cm) tl4 22:08 Pain Scale: Adult tl4 MDM: 21:58 Patient medically screened. sp4 10/14 00:13 ED course: EXAM DESCRIPTION: Transvaginal OB 10/14/2023 10:57 PM CDT CLINICAL HISTORY: sp4 33 years, Female, EGA 6 weeks 3 days, bleeding COMPARISON: None TECHNIQUE: Utilizing a transvaginal array transducer, real-time ultrasound evaluation of the female pelvis was performed. Color Doppler imaging was used to assess vascular flow. FINDINGS: The uterus is anteverted and measures 9.3 x 5.1 x 6.6 cm. The endometrial stripe demonstrate to be normal and measure 9.6 mm, there is a heterogeneous echo structure within the fundus of the uterus measuring 5.1 x 5.4 x 4.7 cm corresponding to most likely a fibroid. The right ovary measures 2.9 x 1.9 x 1.6 cm in length. There are no focal lesions seen. Normal color and doppler flow is visualized. The left ovary measures 3 x 1.6 x 2.0 cm in length. There are no focal lesions seen. Normal color and doppler flow is visualized. No free fluid was identified in the posterior cul-de-sac, no adnexal masses seen. IMPRESSION: There is a 5.4 cm fundal uterine fibroid. Otherwise unremarkable pelvic ultrasound. . 01:21 ED course: EXAM DESCRIPTION: Transvaginal OB 10/14/2023 10:57 PM CDT CLINICAL HISTORY: sp4 33 years, Female, EGA 6 weeks 3 days, bleeding COMPARISON: None TECHNIQUE: Utilizing a transvaginal array transducer, real-time ultrasound evaluation of the female pelvis was performed. Color Doppler imaging was used to assess vascular flow. Sound revealed following IMPRESSION: There is a 5.4 cm fundal uterine fibroid. Otherwise unremarkable pelvic ultrasound. However patient has eloped while waiting for the results before blood can be collected . 01:23 Differential diagnosis: cervicitis, dysmenorrhea, ectopic . Data reviewed: sp4 vital signs, radiologic studies, ultrasound. 10/13 22:36 Order name: Transvaginal OB EDMS 10/13 21:54 Order name: IV Saline Lock sp4 10/13 21:54 Order name: Labs collected and sent sp4 Administered Medications: No medications were administered Disposition Summary: 10/15/23 01:23 Eloped Notes: Disposition: after being seen by provider sp4 Problem: new sp4 Symptoms: are unchanged sp4 Reason: unknown sp4 Condition: Stable sp4 Diagnosis - Vaginal bleeding, uterine fibroid sp4 Followup: sp4 - With: Private Physician - When: 7 - 10 days - Reason: Recheck today's complaints Signatures: Dispatcher [employer] EDEfren Lozano MD MD sp4 Logdahl, TORIE Jackson RN tl4 Corrections: (The following items were deleted from the chart) 10/13 22:36 22:07 OB Limited+US.RAD.BRZ ordered. EDND EDMS
[2023-10-15 03:40] VITALS: BP 133/80; TEMP 98.1; O2SAT 100
--- NOTE | 2023-10-16 14:45 | RAD REPORT ---
EXAM DESCRIPTION: US - Transvaginal OB - 10/14/2023 10:46 pm CLINICAL HISTORY: 33 years, Female, EGA 6 weeks 3 days, bleeding COMPARISON: None TECHNIQUE: Utilizing a transvaginal array transducer, real-time ultrasound evaluation of the female pelvis was performed. Color Doppler imaging was used to assess vascular flow. FINDINGS: The uterus is anteverted and measures 9.3 x 5.1 x 6.6 cm. The endometrial stripe demonst rate to be normal and measure 9.6 mm, there is a heterogeneous echo structure within the fundus of th e uterus measuring 5.1 x 5.4 x 4.7 cm corresponding to most likely a fibroid. The right ovary measures 2.9 x 1.9 x 1.6 cm in length. There are no focal lesions seen. Normal color and doppler flow is visualized. The left ovary measures 3 x 1.6 x 2.0 cm in length. There are no focal lesions seen. Normal color and doppler flow is visualized. No free fluid was identified in the posterior cul-de-sac, no adnexal masses seen. IMPRESSION: There is a 5.4 cm fundal uterine fibroid. Otherwise unremarkable pelvic ultrasound. Electronically signed by: Deshawn Xavier MD 10/14/2023 11:29 PM CDT Due to temporary technical issues with the PACS/Fluency reporting system, reports are being signed by the in house radiologists without review as a courtesy to insure prompt reporting. The interpreting radiologist is fully responsible for the content of the report.
== END | disposition left against medical advice (07) ==
LOC: ER 21:47
DX: D25.9 Leiomyoma of uterus, unspecified (principal)
CPT/HCPCS: 76817; 99281

== ENCOUNTER 2024-10-30 10:54 | Emergency (ER) | payer OTHER, SELFPAY ==
--- OUTSIDE RECORDS SUMMARY | 2024-10-30 10:58 | XMS REPORT | Continuity of Care Document ---
Author Name Unknown Address [address] [place] [address] Organization [facility] [place] Address [address] [place] [address] Care Team Providers Care Operations Intelligence Name Role Phone Pcp, Patient Does Not Have A Primary Care Physic [place] FARTUN_CORINNE_YATammie Attending Clinician Unavailable ALBERT CM Attending Clinician Unavailable Albert Cruz Attending Clinician [phone] Doctor Unassigned, [place] Attending Clinician U PATTIE Swenson Attending Clinician Unavailable FARTUN_CORINNE_YATammie Admitting Clinician Unavailable Problems Condition Name Condition Details Condition Category Status Onset Date Resolution Date Last Treatment Date Treating Clinician Comments Source Rubella immune Rubella immune Disease Active 2012-08 00:00: 00 [facility] Immune to varicella Immune to varicella Disease Active 2012-08 00:00: 00 [facility] 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 SAB at 16 weeks- 2009. [facility] High-risk High-risk Disease Active 2012-08 00:00: 00 Overview: Formattin g of this note might be different from the original. 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 Last taken in childhood . [facility] Social History Social Habit Start Date Stop Date Quantity Comments Source Exposure to SARS-CoV-2 (event) Unable to assess [facility] Alcohol intake 2021-07-29 00:00:00 2021-07-29 00:00:00 Current non-drinker of alcohol (finding) [facility] Tobacco use and exposure 2012-11-01 00:00:00 2012-11-01 00:00:00 Never used [facility] Sex Ass[birth year] At 1990 00:00:00 1990 00:00:00 [facility] Smoking Status Start Date Stop Date Source Never smoker [facility] Medications Ordered Medication Name Filled Medication Name Start Date Stop Date Current Medication? Ordering Clinician Indication Dosage Frequency Signature (SIG) Comments Components Source dicyclomine (BENTYL) 20 mg tablet 04-23 00:00: 00 Yes [id number] 20mg Take 1 tablet by mouth every 6 (six) hours as needed for Abdominal pain. [facility] ondansetron (ZOFRAN) 4 mg tablet 04-23 00:00: 00 Yes [id number] 4mg Take 1 tablet by mouth every 8 (eight) hours as needed for Nausea and Vomiting (N/V). [facility] busPIRone (BUSPAR) 15 mg tablet 02-02 00:00: 00 Yes 15mg Take 1 tablet by mouth 2 (two) times daily. [facility] famotidine (PEPCID) 20 mg tablet 02-02 00:00: 00 Yes 20mg Take 1 tablet by mouth at bedtime. [facility] Vital Signs Vital Name Observation Time Observation Value Comments Lilian campos Systolic blood pressure 2021-07-29 23:48:00 133 mm[Hg] [facility] Diastolic blood pressure 2021-07-29 23:48:00 88 mm[Hg] [facility] Heart rate 2021-07-29 23:48:00 113 /min [facility] Body temperature 2021-07-29 23:48:00 37.78 [place] [facility] Respiratory rate 2021-07-29 23:48:00 18 /min [facility] Body weight 2021-07-29 23:48:00 104.327 kg [facility] BMI 2021-07-29 23:48:00 38.27 kg/m2 [facility] Oxygen saturation in Arterial blood by Pulse oximetry 2021-07-29 23:48:00 99 /min [facility] Procedures Procedure Date / Time Performed Performing Clinicia n Source NOTICE OF PRIVACY PRACTICES 2021-07-29 23:35:56 Doctor Unassigned, Moroni [facility] CONSENT/REFUSAL FOR DIAGNOSIS AND TREATMENT 2021-07-29 23:35:29 Doctor Unassigned, [place] [facility] Encounters Start Date/Time End Date/Time Encounter Type Admission Type Attending Clinicians Care Facility Care Department Encounter ID Source 2023-10-20 00:00:00 2023-10-20 00:00:00 Outpatient FARTUN_SHENG_Y [facility] [id number] Ricci da [facility] h Program 2021-07-29 17:49:00 2021-07-29 18:23:00 Emergency X ALBERT CM [facility] ERT [id number] [facility] 2021-07-29 17:49:00 2021-07-29 18:23:00 Emergency Albert Cm [facility] [id number] [facility] 2021-07-29 00:00:00 2021-07-29 00:00:00 Orders Only Doctor Unassigned, [place] [facility] [id number] [facility] 2019-04-23 14:28:13 2019-04-23 17:58:00 Emergency X PATTIE DAMON [facility] ERT [id number] [facility]
[2024-10-30 11:41] LABS: Absolute Basophils 0.1 K/uL (0-0.5); Absolute Eosinophils 0.1 K/uL (0-0.5); Absolute Monocytes 0.7 K/uL (0.1-1.3); Absolute Neutrophil 6.7 K/uL (1.8-8.0); Basophils % 0.6 % (0-1.3); Eosinophils % 0.8 % (0-4.4); Hematocrit 33.4 % (36.0-45.0); Hemoglobin 10.1 g/dL (12.0-15.0); Lymphocytes % 21.3 % (15.3-44.8); MCH 20.2 pg (27.0-35.0); MCHC 30.2 g/dL (32.0-36.0); MCV 66.7 fL (80-100); MPV 6.8 fL (7.6-11.3); Monocytes % 7.3 % (3.3-12.3); Platelets 406 thou/uL (152-406); Red Cell Distribution Width 19.9 % (12.1-15.2)
[2024-10-30 11:42] LABS: Specific Gravity 1.027 (1.005-1.030)
[2024-10-30 11:45] LABS: Specific Gravity 1.027 (1.005-1.030); Sqamous Epithelial <5 /HPF (None Seen); Urine Bacteria None Seen /HPF (<20); Urine Bilirubin NEGATIVE (Negative); Urine Blood Negative (Negative); Urine Clarity Clear (Clear); Urine Color Light-Yellow (Yellow); Urine Culture Reflex Order NOT NEEDED; Urine Glucose NEGATIVE (Negative); Urine Ketones NEGATIVE (Negative); Urine Microscopic Reflex YN ORDER UMIC; Urine Mucus Slight /HPF (None Seen); Urine Nitrite NEGATIVE (Negative); Urine Protein TRACE (Negative); Urine RBC None Seen /HPF (None Seen); Urine Urobilinogen 1+ (Normal); Urine WBC <5 /HPF (<5); Urine pH 6.5 (5.0-7.0)
[2024-10-30 12:05] LABS: Anion Gap 6.5 mEq/L (5.0-15.0); Potassium 3.5 mEq/L (3.5-5.1)
[2024-10-30 12:43] LABS: Platelet Estimate ADEQ; White Blood Cell Scan OK (OK)
[2024-10-30 12:44] LABS: Anisocytosis SLIGHT; Blood Morphology Comment NOTED (NOT SEEN); Hypochromasia 1+; Microcytosis 2+
--- NOTE | 2024-10-30 13:32 | RAD REPORT ---
EXAMINATION: Pelvis Complete CLINICAL INDICATION: Pelvic pain. TECHNIQUE: Real-time ultrasonography of the pelvis was performed transabdominally.. Color and spectra l Doppler evaluation of the ovaries was performed. COMPARISON: No prior exam. Findings: The uterus measures 10 x 6 x 6 cm. A gestational sac is present within the endometrium. Within this is a pole crown rump length 6 mm. Cardiac activity 141 bpm.. 5.7 cm subserosal fibroid. Right ovary normal in size and echotexture Left ovary normal in size and echotexture Right and left adnexa unremarkable No significant free fluid IMPRESSION: Single live intrauterine with an estimated gestational age 6 weeks 3 days KATERYNA 06/22/2025 5.7 cm subserosal fibroid
--- NOTE | 2024-10-30 13:32 | RAD REPORT ---
EXAMINATION: US FIRST TRIMESTER TRANSVAGINAL WITH DOPPLER CLINICAL INDICATION: with pelvic pain TECHNIQUE: Real-time obstetrical ultrasonography of the maternal pelvis and first trimester was performed transvaginally. Color and spectral Doppler evaluation of the ovaries was performed. COMPARISON: No prior exam. FINDINGS: The uterus measures 10 x 6 x 6 cm. A gestational sac is present within the endometrium. Within this is a pole crown rump length 6 mm. Cardiac activity 141 bpm.. 5.7 cm subserosal fibroid. Right ovary normal in size and echotexture Left ovary normal in size and echotexture Right and left adnexa unremarkable No significant free fluid IMPRESSION: Single live intrauterine with an estimated gestational age 6 weeks 3 days KATERYNA 06/22/2025 5.7 cm subserosal fibroid
--- NOTE | 2024-10-30 13:37 | EDPHYS ---
Physician Documentation [facility] Name: Fannie Mullins Age: 34 yrs Sex: Female : 1990 Arrival Date: 10/30/2024 Time: 10:54 Bed 12 Private MD: ED Physician Alex Cain HPI: 10/30 11:08 This 34 yrs old Female presents to ER via Unassigned with complaints of sb4 , blood work. 11:08 The estimated gestational age is 6 weeks. Patient states that she is approximately 6 sb4 weeks gestation. States that she went to the help center to get an ultrasound. The forklift technician told her that she saw something that she thought was abnormal and sent her to the ED for further evaluation. Patient has no complaints at this time, no pain or bleeding. Has not yet seen an OB. 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 - Infectious Disease History:: Denies. - Social history:: Smoking status: Patient/guardian denies using tobacco. ROS: 11:08 Constitutional: Negative for fever, chills, and weight loss, sb4 11:08 All other systems are negative, Exam: 11:08 Constitutional: This is a well developed, well nourished patient who is awake, alert, sb4 and in no acute distress. Head/Face: Normocephalic, atraumatic. Eyes: Extra-ocular motions intact. Periorbital areas with no swelling, redness, or edema. ENT: Mucous membranes moist. Cardiovascular: Regular rate and rhythm with a normal S1 and S2. Respiratory: No increased work of breathing, no retractions or nasal flaring. Abdomen/GI: Soft, non-tender, no distension. Skin: Warm, dry with normal turgor. Normal color with no rashes, no lesions, and no evidence of cellulitis. Vital Signs: 11:33 BP 131 / 81; Pulse 89; Resp 17; Temp 98.6; Pulse Ox 100% ; Weight 94.35 kg; Height 5 ll1 ft. 6 in. ; 11:33 Body Mass Index 33.57 (94.35 kg, 167.64 cm) ll1 MDM: 10:58 Medical Screening Exam initiated sb4 13:37 Data reviewed: vital signs, nurses notes, lab test result(s), radiologic studies, and sb4 as a result, I will discharge patient. Counseling: I had a detailed discussion with the patient and/or guardian regarding the historical points, exam findings, and any diagnostic results supporting the discharge/admit diagnosis, lab results, radiology results, the need for outpatient follow up, an OB/Gyne specialist, to return to the emergency department if symptoms worsen or persist or if there are any questions or concerns that arise at home. 10/30 11:07 Order name: Basic Metabolic Panel; Complete Time: 12:05 sb4 10/30 11:07 Order name: CBC with Diff; Complete Time: 12:48 sb4 10/30 11:07 Order name: Test, Urine; Complete Time: 12:02 sb4 10/30 11:07 Order name: Quantitative Hcg; Complete Time: 12:05 sb4 10/30 11:07 Order name: Urinalysis w/ reflexes; Complete Time: 11:47 sb4 10/30 12:44 Order name: CBC Smear Scan; Complete Time: 12:48 EDMS 10/30 11:07 Order name: US Transvaginal Ob; Complete Time: 13:32 sb4 10/30 11:39 Order name: Pelvis Complete; Complete Time: 13:36 EDMS 10/30 11:07 Order name: IV Saline Lock; Complete Time: 11:08 sb4 10/30 11:07 Order name: Labs collected and sent; Complete Time: 11:08 sb4 Administered Medications: No medications were administered Disposition Summary: 10/30/24 13:36 Discharge Ordered Notes: Location: Home sb4 Problem: new sb4 Symptoms: are unchanged sb4 Condition: Stable sb4 Diagnosis - Encounter for supervision of other normal , first trimester sb4 Followup: sb4 - With: Private Physician - When: 1 week - Reason: Recheck today's complaints, Re-evaluation by your physician Discharge Instructions: - Discharge Summary Sheet sb4 - Uterine Fibroids sb4 - and Anemia sb4 - Care sb4 - First Trimester of , Eifp-yl-Mybs sb4 Forms: - Patient Portal Instructions sb4 - Leadership Thank You Letter sb4 Prescriptions: - Ferrous Sulfate 325 mg (65 mg Iron) Oral tablet - take 1 tablet ORAL route once daily; 30 tablet; Refills: 0, Product Selection sb4 Permitted Addendum: 10/31/2024 15:31 Co-signature as Attending Physician, Alex Cain MD I agree with the assessment and c arellano plan of care. Signatures: Dispatcher [employer] Alex Diaz MD MD cha Hall, Patricia RN RN [facility] Center[facility] RN RN ll1 Rosanna De Leon, PAMichael PA-C sb4 Corrections: (The following items were deleted from the chart) 10/30 11:08 11:08 BASIC METABOLIC PANEL+C.LAB.BRZ ordered. EDMS EDMS 11: 11:08 CBC+H.LAB.BRZ ordered. EDMS EDMS 11:08 11:08 Test, Urine+UC.LAB.BRZ ordered. EDMS EDMS 11: 11:08 QUANTITATIVE HCG+C.LAB.BRZ ordered. EDMS EDMS 11:08 11:08 Urinalysis+U.LAB.BRZ ordered. EDMS EDMS 11:08 11:08 Transvaginal Ob+US.RAD.BRZ ordered. EDMS EDMS
--- NOTE | 2024-10-30 13:37 | ER ---
Nurse's Notes [facility] Name: Fannie Mullins Age: 34 yrs Sex: Female : 1990 Arrival Date: 10/30/2024 Time: 10:54 Bed 12 Private MD: Diagnosis: Encounter for supervision of other normal , first trimester Presentation: 10/30 11:18 Chief complaint: Patient states: Went to help center for positive ll1 test, US done. Sent in for further testing. G4, P1. Coronavirus screen: Client denies travel out of the [place] in the last 14 days. At this time, the client does not indicate any symptoms associated with coronavirus-19. Ebola Screen: Patient denies travel to an Ebola-affected area in the 21 days before illness onset. Initial Sepsis Screen: Does the patient meet any 2 criteria? No. Patient's initial sepsis screen is negative. Does the patient have a suspected source of infection? No. Patient's initial sepsis screen is negative. Risk Assessment: Do you want to hurt yourself or someone else? Patient reports no desire to harm self or others. Onset of symptoms was October 30, 2024. 11:18 Method Of Arrival: Ambulatory ll1 11:18 Acuity: DARWIN 3 ll1 Triage Assessment: 11:10 General: Appears in no apparent distress. Behavior is calm, cooperative, appropriate ll1 for age. Pain: Denies pain. : Reports wants to confirm G4, P1. 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 - Infectious Disease History:: Denies. - Social history:: Smoking status: Patient/guardian denies using tobacco. Screenin:09 [facility] ED Fall Risk Assessment (Adult) History of falling in the last 3 months, ph including since admission No falls in past 3 months (0 pts) Confusion or Disorientation No (0 pts) Intoxicated or Sedated No (0 pts) Impaired Gait No (0 pts) Mobility Assist Device Used No (0 pt) Altered Elimination No (0 pt) Score/Fall Risk Level 0 - 2 = Low Risk Oriented to surroundings, Maintained a safe environment, Hourly rounding (assess needs \T\ fall precautionary measures) done. Abuse screen: Denies threats or abuse. Denies injuries from another. Nutritional screening: No deficits noted. Tuberculosis screening: No symptoms or risk factors identified. Assessment: 13:40 General: Appears in no apparent distress. comfortable, Behavior is calm, cooperative. ph Pain: Denies pain. Neuro: Level of Consciousness is awake, alert, obeys commands, Oriented to person, place, time, situation. Vital Signs: 11:33 BP 131 / 81; Pulse 89; Resp 17; Temp 98.6; Pulse Ox 100% ; Weight 94.35 kg; Height 5 ll1 ft. 6 in. ; 11:33 Body Mass Index 33.57 (94.35 kg, 167.64 cm) ll1 ED Course: 10:57 Patient arrived in ED. mr 10:57 Rosanna De Leon [facility]C [facility] sb4 10:57 Alex Cain MD is Attending Physician. sb4 11:09 Martha San, RN is Primary Nurse. ph 11:10 Arm band placed on Patient placed in an exam room. ph 11:10 Patient has correct armband on for positive identification. Placed in gown. Call light ph in reach. Side rails up X 1. Pulse ox on. NIBP on. Door closed. Noise minimized. Warm blanket given. 11:17 Basic Metabolic Panel Sent. bc6 11:17 CBC with Diff Sent. bc6 11:17 Test, Urine Sent. bc6 11:17 Quantitative Hcg Sent. bc6 11:17 Urinalysis w/ reflexes Sent. bc6 11:17 Initial lab(s) drawn, by nj, sent to lab. bc6 11:19 Triage completed. ll1 11:59 US Transvaginal Ob In Process Unspecified. EDMS 11:59 Pelvis Complete In Process Unspecified. EDMS 13:40 No provider procedures requiring assistance completed. Patient admitted, IV remains in ph place. Administered Medications: No medications were administered Medication: 11:10 VIS not applicable for this client. ph Outcome: 13:36 Discharge ordered by . sb4 13:40 Discharged to home ambulatory, with significant other, ph 13:40 Condition: good 13:40 Discharge instructions given to patient, Instructed on discharge instructions, follow up and referral plans. medication usage, Demonstrated understanding of instructions, follow-up care, medications, Prescriptions given X 1, 13:41 Patient left the ED. ph Signatures: Dispatcher [employer] EDNM AlEugenie, Reg Reg mr Martha San, RN RN Olena Craft RN RN ll1 Rosanna De Leon, JAKE PAMichael sb4 Milli Goldberg 6 Corrections: (The following items were deleted from the chart) 11:34 11:18 Chief complaint: Patient states: Went to help center, done. Sent in ll1 for further testing. ll1
[2024-10-30 13:47] VITALS: BP 131/81; TEMP 98.6; O2SAT 100
== END 2024-10-30 13:41 | disposition home or self-care (01) ==
LOC: ER 10:54
DX: O34.11 Maternal care for benign tumor of corpus uteri, first trimester (principal); Z3A.01 Less than 8 weeks gestation of pregnancy
CPT/HCPCS: 36415; 76817; 76856; 80048; 81001; 81025; 84702; 85025; 99283

== ENCOUNTER 2024-11-07 23:03 | Emergency (ER) | payer OTHER, SELFPAY ==
--- OUTSIDE RECORDS SUMMARY | 2024-11-07 23:07 | XMS REPORT | Continuity of Care Document ---
Author Name Unknown Address [address] [facility] [address] [place] [address] Organization [facility] [place] Address [address] [facility] [address] [place] [address] Care Team Providers Care Credit Verification Clerk Name Role Phone Pcp, Patient Does Not Have A Primary Care Physic [place] KRISTINA ALVAREZ Attending Clinician UnavailKristina Roman CNM Attending Clinician [phone] GUU_SHENG_YAW Attending Clinician Unavailable ALBERT CM Attending Clinician Unavailable Albert Cruz Attending Clinician [phone] Doctor Unassigned, [place] Attending Clinician U PATTIE Swenson Attending Clinician Unavailable GUU_SHENG_YAW Admitting Clinician Unavailable Payers Payer Name Policy Type Policy Number Effective Date Expirati on Date Source Problems Condition Name Condition Details Condition Category Status Onset Date Resolution Date Last Treatment Date Treating Clinician Comments Source 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 Disease Active 11-07 00:00: 00 [facility] GBS (group B streptococ cus) UTI complicati ng GBS (group B streptococ cus) UTI complicati ng Disease Active 11-07 00:00: 00 [facility] Anemia of mother in , antepartum Anemia of mother in , antepartum Disease Active 4 00:00: 00 [facility] Previous delivery affecting , antepartum Previous delivery affecting , antepartum Disease Active 4 00:00: 00 [facility] Obesity affecting Obesity affecting Disease Active 4 00:00: 00 [facility] Anxiety during Anxiety during Disease Active 11-03 00:00: 00 [facility] Hx of one miscarriag e Hx of one miscarriag e Disease Active 2012-08 00:00: 00 Overview: Formattin g of this note might be different from the original. SAB at 16 weeks- 2009. [facility] Rubella immune Rubella immune Disease Resolve d 2012-08 00:00: 00 2024-11-03 00:00:00 2024-11-03 10:09:47 [facility] Immune to varicella Immune to varicella Disease Resolve d 2012-08 00:00: 00 2024-11-03 00:00:00 2024-11-03 10:09:50 [facility] Candidiasi s of vulva and vagina Candidiasi s of vulva and vagina Disease Resolve d 2012-08 00:00: 00 2024-11-03 00:00:00 2024-11-03 10:09:45 [facility] Allergic rhinitis Allergic rhinitis Disease Resolve d 2012-08 00:00: 00 2024-11-03 00:00:00 2024-11-03 10:09:51 [facility] High-risk High-risk Disease Resolve d 2012-08 00:00: 00 2024-11-03 00:00:00 2024-11-03 10:09:58 Overview: Formattin g of this note might be different from the original. ICD10 Diagnosis Term Spray Gun Sizer Utility [facility] Morbid obesity Morbid obesity Disease Resolve d 11-01 00:00: 2024-11-03 00:00:00 2024-11-03 10:09:49 [facility] Chlamydia trachomati s infection of lower genitourin chase sites Chlamydia trachomati s infection of lower genitourin chase sites Disease Resolve d 11-03 00:00: 00 2013-06-05 00:00:00 2013-06-05 10:13:45 [facility] Supervisio n of normal Supervisio n of normal Disease Resolve d 2012-08 00:00: 00 2013-05-22 00:00:00 2013-05-22 13:19:48 [facility] Other general counseling and advice for contracept zaire management Other general counseling and advice for contracept zaire management Disease Resolve d 11-01 00:00: 00 2013-05-22 00:00:00 2013-05-22 09:54:28 [facility] Allergies, Adverse Reactions, Alerts Allergy Name Allergy Type Status Severity Reaction(s) Onset Date Inactive Date Treating Clinician Comments Source GUAIFENE SIN DRUG INGREDI Active Low Hives 11-01 00:00: 00 [facility] Guaifene sin Propensi ty to adverse reaction s Active Hives 11-01 00:00: 00 Told by her mother. Last taken in childhood . [facility] Social History Social Habit Start Date Stop Date Quantity Comments Source ASSERTION 2024-09-29 00:00:00 [facility] Exposure to SARS-CoV-2 (event) Unable to assess [facility] Alcoholic beverage intake 2024-11-03 00:00:00 2024-11-03 00:00:00 Current non-drinker of alcohol (finding) [facility] History of Social function 2024-11-03 00:00:00 2024-11-03 00:00:00 [facility] Alcohol intake 2021-07-29 00:00:00 2021-07-29 00:00:00 Current non-drinker of alcohol (finding) [facility] Tobacco use and exposure 2012-11-01 00:00:2012-11-01 00:00:00 Smokeless tobacco non-user [facility] Sex assigned at 1990 00:00:00 1990 00:00:00 [facility] Smoking Status Start Date Stop Date Source Never smoked tobacco [facility] Medications Ordered Medication Name Filled Medication Name Start Date Stop Date Current Medication? Ordering Clinician Indication Dosage Frequency Signature (SIG) Comments Components Source Iron Fum & P-FA-Vit B & C No.9 (INTEGRA PLUS) 125 mg iron- 1 mg Cap 11-07 00:00: 00 Yes [id number] 1{capsu le} Take 1 capsule by mouth in the morning. [facility] ampicillin 500 mg capsule 11-07 00:00: 00 11-18 04:59 :00 Yes [id number] 500mg Take 1 capsule by mouth every 6 (six) hours for 10 days. [facility] dicyclomine (BENTYL) 20 mg tablet 04-23 00:00: 11-03 00:00 :00 No [id number] 20mg Take 1 tablet by mouth every 6 (six) hours as needed for Abdominal pain. [facility] ondansetron (ZOFRAN) 4 mg tablet 04-23 00:00: 00 11-03 00:00 :00 No [id number] 4mg Take 1 tablet by mouth every 8 (eight) hours as needed for Nausea and Vomiting (N/V). [facility] busPIRone (BUSPAR) 15 mg tablet 02-02 00:00: 11-03 00:00 :00 No 15mg Take 1 tablet by mouth 2 (two) times daily. [facility] famotidine (PEPCID) 20 mg tablet 02-02 00:00: 11-03 00:00 :00 No 20mg Take 1 tablet by mouth at bedtime. [facility] Immunizations Ordered Immunization Name Filled Immunization Name Date Status Comments Source Influenza, split virus, trivalent, preservative (3+ Yrs) (Afluria) 2013-06-05 00:00:[address] [facility] Influenza Virus Vaccine (3+ yrs) 2013-06-05 00:00:[address] [facility] Influenza Virus Vaccine (3+ yrs) 2013-06-05 00:00:[address] [facility] Varicella (varivax)(chicken pox) 2010-07-02 00:00:00 Completed Rubella 2010-07-02 00:00:[address] [facility] Varicella (varivax)(chicken pox) 2010-07-02 00:00:[address] [facility] Rubella 2010-07-02 00:00:[address] [facility] Varicella (varivax)(chicken pox) 2010-07-02 00:00:[address] [facility] Rubella 2010-07-02 00:00:00 Completed Td 2005-08-02 00:00:[address] [facility] Td 2005-08-02 00:00:[address] [facility] TD, NOS 2005-08-02 00:00:00 Completed Vital Signs Vital Name Observation Time Observation Value Comments S ource Systolic blood pressure 2024-11-03 14:38:00 119 mm[Hg] [facility] Diastolic blood pressure 2024-11-03 14:38:00 66 mm[Hg] [facility] Heart rate 2024-11-03 14:38:00 79 /min [facility] Body temperature 2024-11-03 14:38:[address] [facility] Respiratory rate 2024-11-03 14:38:00 20 /min [facility] Body height 2024-11-03 14:38:[address] [facility] Body weight 2024-11-03 14:38:[address] [facility] BMI 2024-11-03 14:38:00 36.34 kg/m2 [facility] Systolic blood pressure 2021-07-29 23:48:00 133 mm[Hg] [facility] Diastolic blood pressure 2021-07-29 23:48:00 88 mm[Hg] [facility] Heart rate 2021-07-29 23:48:00 113 /min [facility] Body temperature 2021-07-29 23:48:[address] [facility] Respiratory rate 2021-07-29 23:48:00 18 /min [facility] Body weight 2021-07-29 23:48:[address] [facility] BMI 2021-07-29 23:48:00 38.27 kg/m2 [facility] Oxygen saturation in Arterial blood by Pulse oximetry 2021-07-29 23:48:00 99 /min [facility] Procedures Procedure Date / Time Performed Performing Clinicia n Source POCT TEST 2024-11-03 14:37:[address] [facility] POCT URINALYSIS W/O SPECIFIC GRAVITY 2024-11-03 14:37:[address] [facility] NOTICE OF PRIVACY PRACTICES 2021-07-29 23:35:56 Doctor Unassigned, [place] [facility] CONSENT/REFUSAL FOR DIAGNOSIS AND TREATMENT 2021-07-29 23:35:29 Doctor Unassigned, [place] [facility] Plan of Care Planned Activity Planned Date Details Comments Source Encounters Start Date/Time End Date/Time Encounter Type Admission Type Attending Clinicians Care Facility Care Department Encounter ID Source 2024-11-07 00:00:00 2024-11-07 15:53:05 Telephone Kristina Alvarez [facility] DYNAMICIST [facility] [id number]..[id number] [facility] 2024-11-03 09:15:00 2024-11-03 10:55:29 Outpatient R KRISTINA ALVAREZ [facility] [id number] [facility] 2024-11-03 09:15:00 2024-11-03 10:55:29 Initial Visit Kristina Alvarez [facility] DYNAMICIST [facility] 1..[id number] [facility] 2023-10-20 00:00:00 2023-10-20 00:00:00 Outpatient GUU_SHENG_Y AW [facility] [id number] [facility] Outre h Program 2021-07-29 17:49:00 2021-07-29 18:23:00 Emergency X ALBERT CM [facility] ERT [id number] [facility] 2021-07-29 17:49:00 2021-07-29 18:23:00 Emergency Albert Cm [facility] [id number] [facility] 2021-07-29 00:00:00 2021-07-29 00:00:00 Orders Only Doctor Unassigned, [place] [facility] [id number] [facility] 2019-04-23 14:28:13 2019-04-23 17:58:00 Emergency X PATTIE DAMON [facility] ERT [id number] [facility] Results Test Description Test Time Test Comments Results Result Co mments Source [facility] w[facility]o Specific [id number] 14:37:00* Test Item Value Reference Range Interpretation Comme nts POCT PH U (test code = 3254) 6 mg/dl 5-8 POCT U LEUK EST (test code = 3263) Trace Negative - Negative POCT U NIT (test code = 3262) Neg Negative - Negati ve POCT U PROT (test code = 3259) Trace Negative - Negat zaire POCT U GLU (test code = 3256) Nml Negative - Negati ve POCT U KETONE (test code = 3258) Neg Negative - Neg ative POCT U BLD (test code = 3257) Trace Negative - Negati ve [facility] Notes Date/Time Note Provider Source 2024-11-07 15:51:31 Pt informed of results and new orders. Pt informed of false positive and repeat testing will be done at next visit, verbalized understanding. Vaishnavi Cole LVN [facility] 2024-11-07 13:29:30 Please let patient know I erx ampicillin for GBS uti and iron supplement for anemia. She also has false positive syphilis since further testing was negative. Will repeat test next visit. [facility]
[2024-11-08 00:27] LABS: Absolute Eosinophils 0.1 K/uL (0-0.5); Absolute Lymphocytes (CBC) 2.4 K/uL (0.7-4.9); Absolute Monocytes 0.7 K/uL (0.1-1.3); Absolute Neutrophil 6.4 K/uL (1.8-8.0); Basophils % 0.4 % (0-1.3); Eosinophils % 0.8 % (0-4.4); Hematocrit 34.7 % (36.0-45.0); Hemoglobin 10.9 g/dL (12.0-15.0); Lymphocytes % 24.7 % (15.3-44.8); MCHC 31.4 g/dL (32.0-36.0); MCV 66.8 fL (80-100); MPV 6.7 fL (7.6-11.3); Monocytes % 7.6 % (3.3-12.3); Neutrophils % 66.5 % (41.7-73.7); Nucleated Red Blood Cells % 0.1 % (0-0); Platelets 457 thou/uL (152-406); RBC Red Blood Cell Count 5.19 M/uL (3.86-4.86); Red Cell Distribution Width 20.4 % (12.1-15.2)
[2024-11-08 00:37] LABS: Specific Gravity 1.009 (1.005-1.030)
[2024-11-08 00:39] LABS: Specific Gravity 1.009 (1.005-1.030); Sqamous Epithelial <5 /HPF (None Seen); Urine Bacteria <20 /HPF (<20); Urine Bilirubin NEGATIVE (Negative); Urine Blood 1+ (Negative); Urine Clarity Clear (Clear); Urine Color Colorless (Yellow); Urine Culture Reflex Order NOT NEEDED; Urine Glucose NEGATIVE (Negative); Urine Ketones NEGATIVE (Negative); Urine Microscopic Reflex YN ORDER UMIC; Urine Nitrite NEGATIVE (Negative); Urine Protein NEGATIVE (Negative); Urine RBC <5 /HPF (None Seen); Urine Urobilinogen Normal (Normal); Urine WBC <5 /HPF (<5); Urine pH 5.5 (5.0-7.0)
[2024-11-08 00:54] LABS: Anion Gap 9.4 mEq/L (5.0-15.0); Potassium 3.4 mEq/L (3.5-5.1)
[2024-11-08 01:13] LABS: Blood Morphology Comment NOTED (NOT SEEN); Hypochromasia 1+; Microcytosis 1+; Ovalocytes 1+; Platelet Estimate ADEQ; White Blood Cell Scan OK (OK)
--- NOTE | 2024-11-08 04:38 | EDPHYS ---
Physician Documentation [facility] Name: Fannie Mullins Age: 34 yrs Sex: Female : 1990 Arrival Date: 11/07/2024 Time: 23:03 Bed 24 Private MD: ED Physician Efren Fitzpatrick HPI: 11/07 23:17 This 34 yrs old Female presents to ER via Unassigned with complaints of 7 WEEK kb PREG, Abdominal Cramping, Vaginal Bleeding. 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 States she went to the restroom and saw pink on the toilet paper when she wiped so she came straight in. A2. LMP 09/02/24. REports light cramping. 11/08 04:35 LMP estimated to be sometime in September. Based on LMP roughly 7 weeks 4 days EGA. G4 P sp4 1021. Patient presents with painless small amount of vaginal bleeding.. 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 - Infectious Disease History:: Denies. - Social history:: Smoking status: Patient denies any tobacco usage or history of. - Family history:: not pertinent. ROS: 23:17 Constitutional: As per HPI kb 11/08 04:35 Constitutional: Negative for fever, chills, and weight loss, sp4 : Positive for Positive for painless vaginal bleeding, All other systems are negative, Exam: 11/07 23:17 Constitutional: This is a well developed, well nourished patient who is awake, alert, kb and in no acute distress. Head/Face: Normocephalic, atraumatic. ENT: Moist Mucous membranes Cardiovascular: Regular rate Respiratory: Respirations even and unlabored. No increased work of breathing. Talking in full sentences Abdomen/GI: Soft, non-tender. No distention Skin: Warm, dry with normal turgor. Normal color. MS/ Extremity: Pulses equal, no cyanosis. Neurovascular intact. Full, normal range of motion. Neuro: Awake and alert, GCS 15, oriented to person, place, time, and situation. 11/08 04:35 Constitutional: This is a well developed, well nourished patient who is awake, alert, sp4 and in no acute distress. Head/Face: Normocephalic, atraumatic. Eyes: Pupils equal round and reactive to light, extra-ocular motions intact. Lids and lashes normal. Conjunctiva and sclera are not injected. Cornea within normal limits. Periorbital areas with no swelling, redness, or edema. ENT: Nares patent. No nasal discharge, no septal abnormalities noted. Tympanic membranes are normal and external auditory canals are clear. Oropharynx with no redness, swelling, or masses, exudates, or evidence of obstruction, uvula midline. Mucous membranes moist. Neck: Trachea midline, no thyromegaly or masses palpated, and no cervical lymphadenopathy. Supple, full range of motion without nuchal rigidity, or vertebral point tenderness. Chest/axilla: Normal chest wall appearance and motion. Nontender with no deformity. No lesions are appreciated. Cardiovascular: Regular rate and rhythm with a normal S1 and S2. No gallops, murmurs, or rubs. Normal PMI, no JVD. No pulse deficits. Respiratory: Lungs have equal breath sounds bilaterally, clear to auscultation and percussion. No rales, rhonchi or wheezes noted. No increased work of breathing, no retractions or nasal flaring. Abdomen/GI: Soft, with normal bowel sounds. No distension or tympany. No guarding or rebound. No evidence of tenderness throughout. Back: No spinal tenderness. No costovertebral tenderness. Skin: Warm, dry with normal turgor. Normal color with no rashes, no lesions, and no evidence of cellulitis. MS/ Extremity: Pulses equal, no cyanosis. Neurovascular intact. Full, normal range of motion. Neuro: Awake and alert, GCS 15, oriented to person, place, time, and situation. Cranial nerves II-XII grossly intact. Motor strength 5/5 in all extremities. Sensory grossly intact. Psych: Awake, alert, with orientation to person, place and time. Behavior, mood, and affect are within normal limits Vital Signs: 11/07 23:31 BP 118 / 64; Pulse 79; Resp 17; Temp 98.1; Pulse Ox 100% ; Weight 98.88 kg; Height 5 me1 ft. 5 in. ; Pain 0/10; 11/08 02:57 BP 101 / 51; Pulse 72; Resp 16; Pulse Ox 100% on R/A; jb4 05:11 BP 102 / 55; Pulse 85; Resp 17 S; Pulse Ox 99% on R/A; ha1 11/07 23:31 Body Mass Index 36.28 (98.88 kg, 165.1 cm) me1 11/07 23:31 Pain Scale: Adult me1 Wellpinit Coma Score: 04:35 Eye Response: spontaneous(4). Motor Response: obeys commands(6). Verbal Response: sp4 oriented(5). Total: 15. MDM: 11/07 23:13 Medical Screening Exam initiated kb 23:19 Data reviewed: vital signs, nurses notes. kb 11/08 01:01 Transition of care: After a detail discussion of the patient's case, care is kb transferred to Efren Fitzpatrick MD. 04:26 ED course: EXAM DESCRIPTION: Transvaginal OB CLINICAL HISTORY: 34 years Female Abd sp4 pain;Vaginal bleeding COMPARISON: None TECHNIQUE: Endovaginal sonography of the pelvis was performed. FINDINGS: Gestational sac is identified within the uterus. Mean sac diameter is 2.1 cm. This correlates with a age of 7 weeks. pole is identified measuring 1.4 cm. This correlates with a age of 7 weeks 5 days. Average estimated gestational age is 7 weeks 3 days. This indicates an EDC of June 24, 2025. Heart rate was 164 bpm. No subchorionic hemorrhage. Uterus is enlarged measuring 10.8 x 6.1 x 7.3 cm. Heterogeneous echogenicity right fundus possibly fibroid change. Ovaries not well visualized bilaterally. IMPRESSION: Single viable 7 week 3 day intrauterine fetus. Electronically signed by: Janki Bustillos MD 11/08/2024 01:33 AM. 04:34 Differential diagnosis: delivery of infant, STD, ectopic . Consideration of sp4 Admission/Observation Escalation of care including admission/observation considered. ED course: EXAM DESCRIPTION: Transvaginal OB CLINICAL HISTORY: 34 years Female Abd pain;Vaginal bleeding COMPARISON: None TECHNIQUE: Endovaginal sonography of the pelvis was performed. FINDINGS: Gestational sac is identified within the uterus. Mean sac diameter is 2.1 cm. This correlates with a age of 7 weeks. pole is identified measuring 1.4 cm. This correlates with a age of 7 weeks 5 days. Average estimated gestational age is 7 weeks 3 days. This indicates an EDC of June 24, 2025. Heart rate was 164 bpm. No subchorionic hemorrhage. Uterus is enlarged measuring 10.8 x 6.1 x 7.3 cm. Heterogeneous echogenicity right fundus possibly fibroid change. Ovaries not well visualized bilaterally. IMPRESSION: Single viable 7 week 3 day intrauterine fetus. . 11/07 23:13 Order name: Abo/rh Typing; Complete Time: 04:26 kb 11/07 23:13 Order name: Basic Metabolic Panel; Complete Time: 00:55 kb 11/07 23:13 Order name: CBC with Diff; Complete Time: 04:26 kb 11/07 23:13 Order name: Test, Urine; Complete Time: 00:39 kb 11/07 23:13 Order name: Quantitative Hcg; Complete Time: 00:55 kb 11/07 23:13 Order name: Urinalysis w/ reflexes; Complete Time: 00:39 kb 11/08 00:30 Order name: CBC Smear Scan; Complete Time: 04:26 EDMS 11/07 23:13 Order name: US Transvaginal Ob kb 11/07 23:13 Order name: IV Saline Lock; Complete Time: 00:00 kb 11/07 23:13 Order name: Labs collected and sent; Complete Time: 00:00 kb 11/07 23:13 Order name: NPO; Complete Time: 00:00 kb Administered Medications: No medications were administered Disposition: 04:37 I agree with the assessment and plan of care. I reviewed the patient's care provided by sp4 Advanced Practice Provider \T\ agree w/ the diagnosis \T\ care plan. I personally saw the pt \T\ performed a substantive portion of the visit, incldng all aspects of the (History/Exam/Medical Decision Making). Disposition Summary: 11/08/24 04:37 Discharge Ordered Notes: WE recommend HCG level check on 11/10/2024 Location: Home 4 Condition: Stable sp4 Diagnosis - Threatened sp4 - Vaginal bleeding in early , at 7 weeks EGA sp4 Followup: kb - With: Emergency Department - When: As needed - Reason: Worsening of condition Followup: kb - With: Private Physician - When: 2 - 3 days - Reason: Recheck today's complaints, Continuance of care, Re-evaluation by your physician Discharge Instructions: - Discharge Summary Sheet kb - Threatened Miscarriage, [id number] kb Forms: - Family Work Release ha1 - Work release form sp4 - Patient Portal Instructions sp4 Signatures: Dispatcher [employer] EDClaire Childress, CLIENT COORDINATOR-C VIRGILIO-Efren Mart MD MD sp4 Tammy Ayala RN RN me1 Corrections: (The following items were deleted from the chart) 11/07 23:13 23:13 ABO/RH TYPING+BB.LAB.BRZ ordered. EDMS EDMS 23:13 23:13 BASIC METABOLIC PANEL+C.LAB.BRZ ordered. EDMS EDMS 23:13 23:13 CBC+H.LAB.BRZ ordered. EDMS EDMS 23:13 23:13 Test, Urine+UC.LAB.BRZ ordered. EDMS EDMS 23:13 23:13 QUANTITATIVE HCG+C.LAB.BRZ ordered. EDMS EDMS 23:13 23:13 Urinalysis+U.LAB.BRZ ordered. EDMS EDMS
--- NOTE | 2024-11-08 04:38 | ER ---
Nurse's Notes [facility] Name: Fannie Mullins Age: 34 yrs Sex: Female : 1990 Arrival Date: 11/07/2024 Time: 23:03 Bed 24 Private MD: Diagnosis: Threatened ;Vaginal bleeding in early , at 7 weeks EGA Presentation: 11/07 23:31 Chief complaint: Patient states: 7 weeks , wiped earlier and got some pink show me1 on the paper. Reports some mild abdominal cramping. Coronavirus screen: Vaccine status: Patient reports receiving the 2nd dose of the covid vaccine. Ebola Screen: No symptoms or risks identified at this time. Initial Sepsis Screen: Does the patient meet any 2 criteria? No. Patient's initial sepsis screen is negative. Does the patient have a suspected source of infection? No. Patient's initial sepsis screen is negative. Risk Assessment: Do you want to hurt yourself or someone else? Patient reports no desire to harm self or others. Onset of symptoms was November 07, 2024 at 22:30. 23:31 Method Of Arrival: Ambulatory [facility] 23:31 Acuity: DARWIN 3 me1 SHEEP BONER: 23:33 LMP 09/04/2024, unknown me1 Historical: - Allergies: 23:33 ROBITUSSIN; me1 - PMHx: 23:33 None; me1 - PSHx: 23:33 section; me1 - Immunization history:: Adult Immunizations up to date. - Infectious Disease History:: Denies. - Social history:: Smoking status: Patient denies any tobacco usage or history of. - Family history:: not pertinent. Screenin/09 02:57 [facility] ED Fall Risk Assessment (Adult) History of falling in the last 3 months, jb4 including since admission No falls in past 3 months (0 pts) Confusion or Disorientation No (0 pts) Intoxicated or Sedated No (0 pts) Impaired Gait No (0 pts) Mobility Assist Device Used No (0 pt) Altered Elimination No (0 pt) Score/Fall Risk Level 0 - 2 = Low Risk Oriented to surroundings, Maintained a safe environment. Abuse screen: Denies threats or abuse. Nutritional screening: No deficits noted. Tuberculosis screening: No symptoms or risk factors identified. Assessment: 00:00 General: Appears in no apparent distress. comfortable, Behavior is calm, cooperative, jb4 appropriate for age. Pain: Denies pain. Neuro: Level of Consciousness is awake, alert, obeys commands, Oriented to person, place, time, situation. Cardiovascular: Patient's skin is warm and dry. Respiratory: Airway is patent Respiratory effort is even, unlabored, Respiratory pattern is regular, symmetrical. GI: Abdomen is non-distended, obese. : Reports vaginal bleeding that is pink. Derm: Skin is intact, Skin is pink, warm \T\ dry. Musculoskeletal: Circulation, motion, and sensation intact. Range of motion: intact in all extremities. 01:13 Reassessment: Patient appears in no apparent distress at this time. Patient and/or jb4 family updated on plan of care and expected duration. Pain level reassessed. Patient is alert, oriented x 3, equal unlabored respirations, skin warm/dry/pink. 02:57 Reassessment: Patient appears in no apparent distress at this time. Patient and/or jb4 family updated on plan of care and expected duration. Pain level reassessed. Patient is alert, oriented x 3, equal unlabored respirations, skin warm/dry/pink. 04:10 Reassessment: Patient and/or family updated on plan of care and expected duration. Pain ha1 level reassessed. Patient is alert, oriented x 3, equal unlabored respirations, skin warm/dry/pink. 05:12 Reassessment: Patient and/or family updated on plan of care and expected duration. Pain ha1 level reassessed. Patient is alert, oriented x 3, equal unlabored respirations, skin warm/dry/pink. Vital Signs: 11/07 23:31 BP 118 / 64; Pulse 79; Resp 17; Temp 98.1; Pulse Ox 100% ; Weight 98.88 kg; Height 5 me1 ft. 5 in. ; Pain 0/10; 11/08 02:57 BP 101 / 51; Pulse 72; Resp 16; Pulse Ox 100% on R/A; jb4 05:11 BP 102 / 55; Pulse 85; Resp 17 S; Pulse Ox 99% on R/A; ha1 11/07 23:31 Body Mass Index 36.28 (98.88 kg, 165.1 cm) md1 11/07 23:31 Pain Scale: Adult me1 [place] Coma Score: 04:35 Eye Response: spontaneous(4). Motor Response: obeys commands(6). Verbal Response: sp4 oriented(5). Total: 15. ED Course: 11/07 23:11 Patient arrived in ED. gm2 23:12 Claire Hogue FNP-C is [facility]. kb 23:12 Efren Fitzpatrick MD is Attending Physician. kb 23:33 Triage completed. me1 23:33 Arm band placed on Patient placed in waiting room. me1 04 00:30 Inserted saline lock: 20 gauge in right antecubital area, using aseptic technique. ha1 Blood collected. Flushed with 10 mL NS. 00:36 US Transvaginal Ob In Process Unspecified. EDMS 02:57 Patient has correct armband on for positive identification. Bed in low position. Call jb4 light in reach. Side rails up X 1. Provided Education on: plan of care. 02:57 No provider procedures requiring assistance completed. jb4 05:13 IV discontinued, intact, bleeding controlled, No redness/swelling at site. Pressure ha1 dressing applied. Administered Medications: No medications were administered Medication: 02:57 VIS not applicable for this client. jb4 Outcome: 04:37 Discharge ordered by . sp4 05:12 Discharged to home ambulatory, [facility] 05:12 Condition: stable 05:12 Discharge instructions given to patient, Instructed on discharge instructions, follow up and referral plans. Demonstrated understanding of instructions, follow-up care, 05:13 Patient left the ED. ha1 Signatures: Dispatcher [employer] EDHI Claire Hogue FNP-C JUNIOR MECHANICAL ENGINEER-Tej Giang RN RN jb4 Lesly Lawton RN RN Efren Trinidad MD MD sp4 Eddleman, Michelle, RN RN md1 Crista Sanon 2 Corrections: (The following items were deleted from the chart) 01:14 00:00 : Reports vaginal bleeding that is jb4 jb4
[2024-11-08 05:28] VITALS: TEMP 98.1
[2024-11-08 05:31] VITALS: BP 102/55; O2SAT 99
--- NOTE | 2024-11-08 07:32 | RAD REPORT ---
EXAM DESCRIPTION: Transvaginal OB CLINICAL HISTORY: 34 years Female Abd pain;Vaginal bleeding COMPARISON: None TECHNIQUE: Endovaginal sonography of the pelvis was performed. FINDINGS: Gestational sac is identified within the uterus. Mean sac diameter is 2.1 cm. This correlates with a age of 7 weeks. pole is identified measuring 1.4 cm. This correlates with a age of 7 weeks 5 days. Average estimated gestational age is 7 weeks 3 days. This indicates an EDC of Nove mber 2024. Heart rate was 164 bpm. No subchorionic hemorrhage. Uterus is enlarged measuring 10.8 x 6.1 x 7.3 cm. Heterogeneous echogenicity right fundus possibly fi broid change. Ovaries not well visualized bilaterally. IMPRESSION: Single viable 7 week 3 day intrauterine fetus. Electronically signed by: Janki Bustillos MD 11/08/2024 01:33 AM CDT RP Due to temporary technical issues with the [employer] reporting system, reports are being larry d by the in-house radiologist without review as a courtesy to ensure prompt reporting the interpreting radiologist is fully responsible for the content of the report. Transcribed Date/Time: 11/08/2024 7:32 AM
== END 2024-11-08 05:13 | disposition home or self-care (01) ==
LOC: ER 23:03
DX: O20.0 Threatened abortion (principal); Z3A.01 Less than 8 weeks gestation of pregnancy
CPT/HCPCS: 36415; 76817; 80048; 81001; 81025; 84702; 85025; 86900; 86901

== ENCOUNTER 2024-11-10 16:34 | Emergency (ER) | payer OTHER ==
--- OUTSIDE RECORDS SUMMARY | 2024-11-10 16:37 | XMS REPORT | Continuity of Care Document ---
Author Name Unknown Address [address] [place] [address] Organization [facility] Address [address] [place] [address] Care Team Providers Care Hydramatic Specialist Name Role Phone PCP, PATIENT DOES NOT HAVE A Primary Care Physic [place] Unavailable KRISTINA ALVAREZ Attending Clinician UnavailKristina Roman CNM Attending Clinician GUU_SHENG_YAW Attending Clinician Unavailable ALBERT ALY Attending Clinician Unavailable Albert Cruz Attending Clinician [phone] Doctor Unassigned, Mullan Attending Clinician U PATTIE Swenson Attending Clinician Unavailable GUU_SHENG_YAW Admitting Clinician Unavailable Payers Payer Name Policy Type Policy Number Effective Date Expirati on Date Source MEDICAID PENDING PENDING 2024 00:00:00 Problems Condition Name Condition Details Condition Category Status Onset Date Resolution Date Last Treatment Date Treating Clinician Comments Source 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 Disease Active 11-07 00:00: 00 [facility] GBS (group B streptococ cus) UTI complicati ng GBS (group B streptococ cus) UTI complicati ng Disease Active 408 00:00: 00 [facility] Anemia of mother in , antepartum Anemia of mother in , antepartum Disease Active 408 00:00: 00 [facility] Previous delivery affecting , antepartum Previous delivery affecting , antepartum Disease Active 4- 00:00: 00 [facility] Obesity affecting Obesity affecting Disease Active 4- 00:00: 00 [facility] Anxiety during Anxiety during Disease Active 4 00:00: 00 [facility] Hx of one miscarriag e Hx of one miscarriag e Disease Active 2012-08 00:00: 00 Overview: Formattin g of this note might be different from the original. SAB at 16 weeks- 2009. [facility] Rubella immune Rubella immune Disease Resolve d 2012-08 00:00: 00 2024-11-03 00:00:00 2024-11-03 10:09:47 [facility] Immune to varicella Immune to varicella Disease Resolve d 2012-08 00:00: 00 2024-11-03 00:00:00 2024-11-03 10:09:50 [facility] Candidiasi s of vulva and vagina Candidiasi s of vulva and vagina Disease Resolve d 2012-08 00:00: 00 2024-11-03 00:00:00 2024-11-03 10:09:45 [facility] Allergic rhinitis Allergic rhinitis Disease Resolve d 2012-08 00:00: 00 2024-11-03 00:00:00 2024-11-03 10:09:51 [facility] High-risk High-risk Disease Resolve d 2012-08 00:00: 00 2024-11-03 00:00:00 2024-11-03 10:09:58 Overview: Formattin g of this note might be different from the original. ICD10 Diagnosis Term Pet Counselor Utility [facility] Morbid obesity Morbid obesity Disease Resolve d 11-01 00:00: 00 2024-11-03 00:00:00 2024-11-03 10:09:49 [facility] Chlamydia trachomati s infection of lower genitourin chase sites Chlamydia trachomati s infection of lower genitourin chase sites Disease Resolve d 11-03 00:00: 00 2013-06-05 00:00:00 2013-06-05 10:13:45 [facility] Supervisio n of normal Supervisio n of normal Disease Resolve d 2012-08 00:00: 00 2013-05-22 00:00:00 2013-05-22 13:19:48 [facility] Other general counseling and advice for contracept zaire management Other general counseling and advice for contracept zaire management Disease Resolve d 11-01 00:00: 00 2013-05-22 00:00:00 2013-05-22 09:54:28 [facility] Allergies, Adverse Reactions, Alerts Allergy Name Allergy Type Status Severity Reaction(s) Onset Date Inactive Date Treating Clinician Comments Source GUAIFENE SIN DRUG INGREDI Active Low Hives 11-01 00:00: 00 [facility] Guaifene sin Propensi ty to adverse reaction s Active Hives 11-01 00:00: 00 Told by her mother. Last taken in childhood . [facility] Social History Social Habit Start Date Stop Date Quantity Comments Source ASSERTION 2024-09-29 00:00:00 [facility] Exposure to SARS-CoV-2 (event) [facility] to assess [facility] Alcoholic beverage intake 2024-11-03 00:00:00 2024-11-03 00:00:00 Current non-drinker of alcohol (finding) [facility] History of Social function 2024-11-03 00:00:00 2024-11-03 00:00:00 [facility] Alcohol intake 2021-07-29 00:00:00 2021-07-29 00:00:00 Current non-drinker of alcohol (finding) [facility] Tobacco use and exposure 2012-11-01 00:00:2012-11-01 00:00:00 Smokeless tobacco non-user [facility] Sex assigned at 1990 00:00:1990 00:00:00 [facility] Smoking Status Start Date Stop Date Source Never smoked tobacco [facility] Medications Ordered Medication Name Filled Medication Name Start Date Stop Date Current Medication? Ordering Clinician Indication Dosage Frequency Signature (SIG) Comments Components Source Iron Fum & P-FA-Vit B & C No.9 (INTEGRA PLUS) 125 mg iron- 1 mg Cap 11-07 00:00: 00 Yes [id number] 1{capsu le} Take 1 capsule by mouth in the morning. [facility] ampicillin 500 mg capsule 11-07 00:00: 00 11-18 04:59 :00 Yes [id number] 500mg Take 1 capsule by mouth every 6 (six) hours for 10 days. [facility] dicyclomine (BENTYL) 20 mg tablet 04-23 00:00: 11-03 00:00 :00 No [id number] 20mg Take 1 tablet by mouth every 6 (six) hours as needed for Abdominal pain. [facility] ondansetron (ZOFRAN) 4 mg tablet 04-23 00:00: 00 11-03 00:00 :00 No [id number] 4mg Take 1 tablet by mouth every 8 (eight) hours as needed for Nausea and Vomiting (N/V). [facility] busPIRone (BUSPAR) 15 mg tablet 02-02 00:00: 00 11-03 00:00 :00 No 15mg Take 1 tablet by mouth 2 (two) times daily. [facility] famotidine (PEPCID) 20 mg tablet 02-02 00:00: 00 11-03 00:00 :00 No 20mg Take 1 tablet by mouth at bedtime. [facility] Immunizations Ordered Immunization Name Filled Immunization Name Date Status Comments Source Influenza, split virus, trivalent, preservative (3+ Yrs) (Afluria) 2013-06-05 00:00:00 Completed [facility] Influenza Virus Vaccine (3+ yrs) 2013-06-05 00:00:00 Completed [facility] Influenza Virus Vaccine (3+ yrs) 2013-06-05 00:00:00 Completed [facility] Varicella (varivax)(chicken pox) 2010-07-02 00:00:00 Completed Rubella 2010-07-02 00:00:00 Completed [facility] Varicella (varivax)(chicken pox) 2010-07-02 00:00:00 Completed [facility] Rubella 2010-07-02 00:00:00 Completed [facility] Varicella (varivax)(chicken pox) 2010-07-02 00:00:00 Completed [facility] Rubella 2010-07-02 00:00:00 Completed Td 2005-08-02 00:00:00 Completed [facility] Td 2005-08-02 00:00:00 Completed [facility] TD, NOS 2005-08-02 00:00:00 Completed Vital Signs Vital Name Observation Time Observation Value Comments S ource Systolic blood pressure 2024-11-03 14:38:00 119 mm[Hg] [facility] Diastolic blood pressure 2024-11-03 14:38:00 66 mm[Hg] [facility] Heart rate 2024-11-03 14:38:00 79 /min [facility] Body temperature 2024-11-03 14:38:00 36.83 Elba [facility] Respiratory rate 2024-11-03 14:38:00 20 /min [facility] Body height 2024-11-03 14:38:00 165.1 cm [facility] Body weight 2024-11-03 14:38:00 99.054 kg [facility] BMI 2024-11-03 14:38:00 36.34 kg/m2 [facility] Systolic blood pressure 2021-07-29 23:48:00 133 mm[Hg] [facility] Diastolic blood pressure 2021-07-29 23:48:00 88 mm[Hg] [facility] Heart rate 2021-07-29 23:48:00 113 /min [facility] Body temperature 2021-07-29 23:48:00 37.78 Elba [facility] Respiratory rate 2021-07-29 23:48:00 18 /min [facility] Body weight 2021-07-29 23:48:00 104.327 kg [facility] BMI 2021-07-29 23:48:00 38.27 kg/m2 [facility] Oxygen saturation in Arterial blood by Pulse oximetry 2021-07-29 23:48:00 99 /min [place] [facility] Procedures Procedure Date / Time Performed Performing Clinicia n Source POCT TEST 2024-11-03 14:37:00 Danni Alvarez [facility] POCT URINALYSIS W/O SPECIFIC GRAVITY 2024-11-03 14:37:00 Kristina Alvarez [facility] NOTICE OF PRIVACY PRACTICES 2021-07-29 23:35:56 Doctor Unassigned, Mullan [facility] CONSENT/REFUSAL FOR DIAGNOSIS AND TREATMENT 2021-07-29 23:35:29 Doctor Unassigned, Mullan [facility] Encounters Start Date/Time End Date/Time Encounter Type Admission Type Attending Clinicians Care Facility Care Department Encounter ID Source 2024-12-01 10:00:00 2024-12-01 10:00:00 Outpatient KRISTINA FELIPE [facility] [id number] [facility] 2024-11-07 00:00:00 2024-11-07 15:53:05 Telephone Kristina Alvarez [employer] [facility] [id number] [facility] 2024-11-03 09:15:00 2024-11-03 10:55:29 Outpatient R KRISTINA ALVAREZ [facility] [id number] [facility] 2024-11-03 09:15:00 2024-11-03 10:55:29 Initial Visit Kristina Alvarez [facility] [employer] [facility] [id number] [facility] 2023-10-20 00:00:00 2023-10-20 00:00:00 Outpatient GUU_SHENG_Y AW RIGOBERTO [facility] [id number] [place] [facility] 2021-07-29 17:49:00 2021-07-29 18:23:00 Emergency X ALBERT ALY [facility] ERT [id number] [facility] 2021-07-29 17:49:00 2021-07-29 18:23:00 Emergency Albert Aly [facility] [id number] [facility] 2021-07-29 00:00:00 2021-07-29 00:00:00 Orders Only Doctor Unassigned, Mullan [facility] [id number] [facility] 2019-04-23 14:28:13 2019-04-23 17:58:00 Emergency X PATTIE DAMON [facility] ERT [id number] [facility] Results Test Description Test Time Test Comments Results Result Co mments Source [facility] Specific [id number] 14:37:00* Test Item Value Reference Range Interpretation [...] = [id number]) Trace Negative - Negati ve [facility] Notes Date/Time Note Provider Source 2024-11-07 15:51:31 Pt informed of results and new orders. Pt informed of false positive and repeat testing will be done at next visit, verbalized understanding. Vaishnavi Cole LVN [facility] 2024-11-07 13:29:30 Please let patient know I erx ampicillin for GBS uti and iron supplement for anemia. She also has false positive syphilis since further testing was negative. Will repeat test next visit. [facility]
--- NOTE | 2024-11-10 18:25 | RAD REPORT ---
EXAMINATION: Transvaginal OB COMPARISON: None. HISTORY: ABD CRAMPING, TECHNIQUE: Real-time ultrasound was performed through the pelvis. A transvaginal scan was performed t o better visualize the intrauterine contents and adnexa. FINDINGS: Study is limited quality. Visualization of the uterus and endometrial canal is limited. There appears to be a single IUP present. Gestational sac limited in visualization. Yolk sac is not w ell seen. Embryo measures 17 mm corresponding to 8 weeks 1 day gestational age. Cardiac activity 174 BPM. Neither ovary well visualized.
--- NOTE | 2024-11-10 21:00 | ER ---
Nurse's Notes [facility] Name: Fannie Mullins Age: 34 yrs Sex: Female : 1990 Arrival Date: 11/10/2024 Time: 16:34 Bed IW8 Private MD: Diagnosis: Threatened Presentation: 11/10 17:10 Chief complaint: Seen 3 days ago for bleeding while , here for HCG check. hb Coronavirus screen: At this time, the client does not indicate any symptoms associated with coronavirus-19. Ebola Screen: No symptoms or risks identified at this time. Initial Sepsis Screen: Does the patient meet any 2 criteria? No. Patient's initial sepsis screen is negative. Does the patient have a suspected source of infection? No. Patient's initial sepsis screen is negative. Risk Assessment: Do you want to hurt yourself or someone else? Patient reports no desire to harm self or others. Onset of symptoms was November 10, 2024. 17:10 Method Of Arrival: Ambulatory hb 17:10 Acuity: DARWIN 3 hb Historical: - Allergies: 17:12 ROBITUSSIN; hb - PSHx: 17:12 section; hb - Immunization history:: Adult Immunizations up to date. - Infectious Disease History:: Denies. - Social history:: Smoking status: Patient denies any tobacco usage or history of. Screenin:04 [facility] ED Fall Risk Assessment (Adult) History of falling in the last 3 months, jj7 including since admission No falls in past 3 months (0 pts) Confusion or Disorientation No (0 pts) Intoxicated or Sedated No (0 pts) Impaired Gait No (0 pts) Mobility Assist Device Used No (0 pt) Altered Elimination No (0 pt) Score/Fall Risk Level 0 - 2 = Low Risk Oriented to surroundings, Maintained a safe environment, Educated pt \T\ family on fall prevention, incl call for assistance when getting out of bed, Assessed \T\ reinforced patient's understanding of fall precautions. Abuse screen: Denies threats or abuse. Nutritional screening: No deficits noted. Tuberculosis screening: No symptoms or risk factors identified. Assessment: 21:04 General: Appears in no apparent distress. comfortable, Behavior is calm, cooperative, jj7 appropriate for age. Pain: Denies pain. : Reports cramping. Vital Signs: 17:10 BP 131 / 69; Pulse 97; Resp 16; Temp 98.7; Pulse Ox 100% on R/A; Weight 98.88 kg; hb Height 5 ft. 0 in. ; Pain 0/10; 21:04 BP 139 / 73; Pulse 82; Resp 20; Temp 97.3; Pulse Ox 100% ; Pain 0/10; jj7 17:10 Body Mass Index 42.57 (98.88 kg, 152.4 cm) hb 17:10 Pain Scale: Adult hb 21:04 Pain Scale: Adult j7 ED Course: 16:39 Patient arrived in ED. cj3 16:42 [facility] Prec[facility]C [facility] 16:42 Alex Cain MD is Attending Physician. dr5 17:11 Triage completed. hb 17:11 Arm band placed on. hb 17:40 Transvaginal OB US In Process Unspecified. EDMS 19:20 HCG-Quantitative Sent. hb 19:20 Initial lab(s) drawn, by me, sent to lab. hb 21:04 Patient has correct armband on for positive identification. Provided Education on: f/u. jj7 21:04 No provider procedures requiring assistance completed. IV discontinued, intact, jj7 bleeding controlled, No redness/swelling at site. Pressure dressing applied. Administered Medications: No medications were administered Medication: 21:04 VIS not applicable for this client. jj7 Outcome: 21:00 Discharge ordered by MD. dr5 21:04 Discharged to home ambulatory, jj7 21:04 Condition: good 21:04 Discharge instructions given to patient, Instructed on discharge instructions, follow up and referral plans. Demonstrated understanding of instructions, follow-up care, 21:08 Patient left the ED. jj7 Signatures: Dispatcher [employer] EDMS Leanna Lopes RN RN Babita Colon RN RN jj7 Rhodes, Dustin, FNP-C HIMS CLERK-Cdr5 Em Young cj3 Corrections: (The following items were deleted from the chart) 17:11 17:10 BP 131 / 69; Pulse 97bpm; Resp 16bpm; Pulse Ox 100% RA; Temp 98.7F; Pain 0/10, hb Adult; hb
--- NOTE | 2024-11-10 21:00 | EDPHYS ---
Physician Documentation [facility] Name: Fannie Mullins Age: 34 yrs Sex: Female : 1990 Arrival Date: 11/10/2024 Time: 16:34 Bed IW8 Private MD: ED Physician Alex Cain HPI: 11/10 20:00 This 34 yrs old Female presents to ER via Ambulatory with complaints of HCG dr5 Level Recheck. 20:00 Onset: The symptoms/episode began/occurred acutely. Patient is a 34-year-old female dr5 with no past medical history coming in with BP hCG and ultrasound after being seen recently. Patient reports that her vaginal bleeding has resolved and is feeling much better. Patient denies any complaints at this time including abdominal pain or contractions. . Historical: - Allergies: 17:12 ROBITUSSIN; hb - PSHx: 17:12 section; hb - Immunization history:: Adult Immunizations up to date. - Infectious Disease History:: Denies. - Social history:: Smoking status: Patient denies any tobacco usage or history of. ROS: 20:00 Constitutional: as per hpi dr5 Exam: 20:00 Constitutional: This is a well developed, well nourished patient who is awake, alert, dr5 and in no acute distress. Head/Face: Normocephalic, atraumatic. Eyes: Pupils equal round and reactive to light, extra-ocular motions intact. Lids and lashes normal. Conjunctiva and sclera are non-icteric and not injected. Cornea within normal limits. Periorbital areas with no swelling, redness, or edema. Neck: Trachea midline, no thyromegaly or masses palpated, and no cervical lymphadenopathy. Supple, full range of motion without nuchal rigidity, or vertebral point tenderness. No Meningismus. Chest/axilla: Normal chest wall appearance and motion. Nontender with no deformity. No lesions are appreciated. Cardiovascular: Regular rate and rhythm with a normal S1 and S2. Normal PMI, no JVD. No pulse deficits. Respiratory: Lungs have equal breath sounds bilaterally, clear to auscultation. No rales, rhonchi or wheezes noted. No increased work of breathing, no retractions or nasal flaring. Abdomen/GI: Soft, non-tender, non-distended Back: No spinal tenderness. No costovertebral tenderness. Full range of motion. Skin: Warm, dry with normal turgor. Normal color with no rashes, no lesions, and no evidence of cellulitis. MS/ Extremity: Pulses equal, no cyanosis. Neurovascular intact. Full, normal range of motion. Vital Signs: 17:10 BP 131 / 69; Pulse 97; Resp 16; Temp 98.7; Pulse Ox 100% on R/A; Weight 98.88 kg; hb Height 5 ft. 0 in. ; Pain 0/10; 21:04 BP 139 / 73; Pulse 82; Resp 20; Temp 97.3; Pulse Ox 100% ; Pain 0/10; jj7 17:10 Body Mass Index 42.57 (98.88 kg, 152.4 cm) hb 17:10 Pain Scale: Adult hb 21:04 Pain Scale: Adult jj7 MDM: 17:12 Medical Screening Exam initiated dr5 18:45 ED course: Pending repeat HCG level. ED course: Reviewed US with reassuring findings.. dr5 23:59 Differential diagnosis: Threatened Miscarriage, Threatened , subchorionic dr5 hemorrhage. Data reviewed: vital signs, nurses notes. Data reviewed: vital signs, nurses notes. Care significantly affected by the following Social Determinants of Health: Poor access to healthcare and/or lack of insurance, Poor access to transportation, Problems related to employment. Counseling: I had a detailed discussion with the patient and/or guardian regarding the historical points, exam findings, and any diagnostic results supporting the discharge/admit diagnosis, the presence of at least one elevated blood pressure reading (>120/80) during this emergency department visit, lab results, radiology results, the need for outpatient follow up, for definitive care, a family practitioner, an OB/Gyne specialist, to return to the emergency department if symptoms worsen or persist or if there are any questions or concerns that arise at home. ED course: Lab results and ultrasound printed and given to patient. hCG is rising appropriately and no acute findings noted on ultrasound. Will have patient follow-up with PREFITTER this week. Recommended taking Tylenol as needed for pain. 11/10 17:09 Order name: HCG-Quantitative hb 11/10 17:09 Order name: Transvaginal OB US; Complete Time: 18:33 hb Administered Medications: No medications were administered Disposition Summary: 11/10/24 21:00 Discharge Ordered Notes: Location: Home dr5 Condition: Stable dr5 Diagnosis - Threatened dr5 Followup: dr5 - With: Emergency Department - When: As needed - Reason: Worsening of condition Followup: dr5 - With: Private Physician - When: 1 - 2 days - Reason: Recheck today's complaints, Continuance of care, Re-evaluation by your physician Discharge Instructions: - Discharge Summary Sheet dr5 - Threatened Miscarriage, [id number] dr5 Forms: - Medication Reconciliation Form dr5 - Patient Portal Instructions dr5 - Leadership Thank You Letter dr5 Signatures: Dispatcher [employer] Leanna Haddad RN RN Chris Cheng, WRITING MANAGER-C WRITING MANAGER-Cdr5
[2024-11-10 21:25] VITALS: O2SAT 100
[2024-11-10 21:27] VITALS: BP 139/73; TEMP 97.3
== END 2024-11-10 21:08 | disposition home or self-care (01) ==
LOC: ER 16:34
DX: O20.0 Threatened abortion (principal)
CPT/HCPCS: 36415; 76817; 84702; 99283

== ENCOUNTER 2024-11-11 12:54 | Emergency (ER) | payer OTHER ==
--- OUTSIDE RECORDS SUMMARY | 2024-11-11 12:56 | XMS REPORT | Continuity of Care Document ---
Author Name Unknown Address [address] [place] [address] Organization [facility] Address [address] [place] [address] Care Team Providers Care Associate Chief Nurse Name Role Phone PCP, PATIENT DOES NOT HAVE A Primary Care Physic [place] Unavailable KRISTIAN ALVAREZ Attending Clinician UnavailKristina Roman CNM Attending Clinician GUU_[email or web address] Attending Clinician Unavailable ALBERT ALY Attending Clinician Unavailable Albert Cruz Attending Clinician [phone] Doctor Unassigned, [place] Attending Clinician U PATTIE Swenson Attending Clinician Unavailable GUU_SHENG_YAW Admitting Clinician Unavailable Payers Payer Name Policy Type Policy Number Effective Date Expirati on Date Source MEDICAID PENDING PENDING 2024 00:00:00 Problems Condition Name Condition Details Condition Category Status Onset Date Resolution Date Last Treatment Date Treating Clinician Comments Source 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 Disease Active 11-07 00:00: 00 [facility] GBS (group B streptococ cus) UTI complicati ng GBS (group B streptococ cus) UTI complicati ng Disease Active 11-07 00:00: 00 [facility] Anemia of mother in , antepartum Anemia of mother in , antepartum Disease Active 11-07 00:00: 00 [facility] Previous delivery affecting , antepartum Previous delivery affecting , antepartum Disease Active 11-03 00:00: 00 [facility] Obesity affecting Obesity affecting Disease Active 11-03 00:00: 00 [facility] Anxiety during Anxiety during Disease Active 11-03 00:00: 00 [facility] Hx of one miscarriag e Hx of one miscarriag e Disease Active 2012-08 00:00: 00 Overview: Formattin g of this note might be different from the original. SAB at 16 weeks- 2009. [facility] Rubella immune Rubella immune Disease Resolve d 2012-08 00:00: 00 2024-11-03 00:00:00 2024-11-03 10:09:47 [facility] Immune to varicella Immune to varicella Disease Resolve d 2012-08 00:00: 00 2024-11-03 00:00:00 2024-11-03 10:09:50 [facility] Candidiasi s of vulva and vagina Candidiasi s of vulva and vagina Disease Resolve d 2012-08 00:00: 00 2024-11-03 00:00:00 2024-11-03 10:09:45 [facility] Allergic rhinitis Allergic rhinitis Disease Resolve d 2012-08 00:00: 00 2024-11-03 00:00:00 2024-11-03 10:09:51 [facility] High-risk High-risk Disease Resolve d 2012-08 00:00: 00 2024-11-03 00:00:00 2024-11-03 10:09:58 Overview: Formattin g of this note might be different from the original. ICD10 Diagnosis Term Single [employer] [facility] Morbid obesity Morbid obesity Disease Resolve d 11-01 00:00: 00 2024-11-03 00:00:00 2024-11-03 10:09:49 [facility] Chlamydia trachomati s infection of lower genitourin chase sites Chlamydia trachomati s infection of lower genitourin chase sites Disease Resolve d 11-03 00:00: 00 2013-06-05 00:00:00 2013-06-05 10:13:45 [facility] Supervisio n of normal Supervisio n of normal Disease Resolve d 2012-08 00:00: 00 2013-05-22 00:00:00 2013-05-22 13:19:48 [facility] Other general counseling and advice for contracept zaire management Other general counseling and advice for contracept zaire management Disease Resolve d 11-01 00:00: 00 2013-05-22 00:00:00 2013-05-22 09:54:28 [facility] Allergies, Adverse Reactions, Alerts Allergy Name Allergy Type Status Severity Reaction(s) Onset Date Inactive Date Treating Clinician Comments Source GUAIFENE SIN DRUG INGREDI Active Low Hives 11-01 00:00: 00 [facility] Guaifene sin Propensi ty to adverse reaction s Active Hives 11-01 00:00: 00 Told by her mother. Last taken in childhood . [facility] Social History Social Habit Start Date Stop Date Quantity Comments Source ASSERTION 2024-09-29 00:00:00 [facility] Exposure to SARS-CoV-2 (event) Unable to assess [facility] Alcoholic beverage intake 2024-11-03 00:00:00 2024-11-03 00:00:00 Current non-drinker of alcohol (finding) [facility] History of Social function 2024-11-03 00:00:00 2024-11-03 00:00:00 [facility] Alcohol intake 2021-07-29 00:00:00 2021-07-29 00:00:00 Current non-drinker of alcohol (finding) [facility] Tobacco use and exposure 2012-11-01 00:00:00 2012-11-01 00:00:00 Smokeless tobacco non-user [facility] Sex assigned at 1990 00:00:1990 00:00:00 [facility] Smoking Status Start Date Stop Date Source Never smoked tobacco [facility] Medications Ordered Medication Name Filled Medication Name Start Date Stop Date Current Medication? Ordering Clinician Indication Dosage Frequency Signature (SIG) Comments Components Source Iron Fum & P-FA-Vit B & C No.9 (INTEGRA PLUS) 125 mg iron- 1 mg Cap 11-07 00:00: 00 Yes [id number] 1{capsu le} Take 1 capsule by mouth in the morning. [facility] ampicillin 500 mg capsule 11-07 00:00: 00 11-18 04:59 :00 Yes [id number] 500mg Take 1 capsule by mouth every 6 (six) hours for 10 days. [facility] dicyclomine (BENTYL) 20 mg tablet 04-23 00:00: 11-03 00:00 :00 No [id number] 20mg Take 1 tablet by mouth every 6 (six) hours as needed for Abdominal pain. [facility] ondansetron (ZOFRAN) 4 mg tablet 04-23 00:00: 00 11-03 00:00 :00 No [id number] 4mg Take 1 tablet by mouth every 8 (eight) hours as needed for Nausea and Vomiting (N/V). [facility] busPIRone (BUSPAR) 15 mg tablet 02-02 00:00: 00 11-03 00:00 :00 No 15mg Take 1 tablet by mouth 2 (two) times daily. [facility] famotidine (PEPCID) 20 mg tablet 02-02 00:00: 00 11-03 00:00 :00 No 20mg Take 1 tablet by mouth at bedtime. [facility] Immunizations Ordered Immunization Name Filled Immunization Name Date Status Comments Source Influenza, split virus, trivalent, preservative (3+ Yrs) (Afluria) 2013-06-05 00:00:00 Completed [facility] Influenza Virus Vaccine (3+ yrs) 2013-06-05 00:00:00 Completed [facility] Influenza Virus Vaccine (3+ yrs) 2013-06-05 00:00:00 Completed [facility] Varicella (varivax)(chicken pox) 2010-07-02 00:00:00 Completed Rubella 2010-07-02 00:00:00 Completed [facility] Varicella (varivax)(chicken pox) 2010-07-02 00:00:00 Completed [facility] Rubella 2010-07-02 00:00:00 Completed [facility] Varicella (varivax)(chicken pox) 2010-07-02 00:00:00 Completed [facility] Rubella 2010-07-02 00:00:00 Completed Td 2005-08-02 00:00:00 Completed [facility] Td 2005-08-02 00:00:00 Completed [facility] TD, NOS 2005-08-02 00:00:00 Completed Vital Signs Vital Name Observation Time Observation Value Comments S ource Systolic blood pressure 2024-11-03 14:38:00 119 mm[Hg] [facility] Diastolic blood pressure 2024-11-03 14:38:00 66 mm[Hg] [facility] Heart rate 2024-11-03 14:38:00 79 /min [facility] Body temperature 2024-11-03 14:38:00 36.83 [place] [facility] Respiratory rate 2024-11-03 14:38:00 20 /min [facility] Body height 2024-11-03 14:38:00 165.1 cm [facility] Body weight 2024-11-03 14:38:00 99.054 kg [facility] BMI 2024-11-03 14:38:00 36.34 kg/m2 [facility] Systolic blood pressure 2021-07-29 23:48:00 133 mm[Hg] [facility] acute hospital Diastolic blood pressure 2021-07-29 23:48:00 88 mm[Hg] [facility] acute hospital Heart rate 2021-07-29 23:48:00 113 /min [facility] Body temperature 2021-07-29 23:48:00 37.78 [place] [facility] Respiratory rate 2021-07-29 23:48:00 18 /min [facility] Body weight 2021-07-29 23:48:00 104.327 kg [facility] BMI 2021-07-29 23:48:00 38.27 kg/m2 [facility] Oxygen saturation in Arterial blood by Pulse oximetry 2021-07-29 23:48:00 99 /min [place] [facility] Procedures Procedure Date / Time Performed Performing Clinicia n Source POCT TEST 2024-11-03 14:37:00 Danni Alvarez [facility] POCT URINALYSIS W/O SPECIFIC GRAVITY 2024-11-03 14:37:00 Kristina Alvarez [facility] NOTICE OF PRIVACY PRACTICES 2021-07-29 23:35:56 Doctor Unassigned, [place] [facility] CONSENT/REFUSAL FOR DIAGNOSIS AND TREATMENT 2021-07-29 23:35:29 Doctor Unassigned, [place] [facility] Encounters Start Date/Time End Date/Time Encounter Type Admission Type Attending Clinicians Care Facility Care Department Encounter ID Source 2024-12-01 10:00:00 2024-12-01 10:00:00 Outpatient KRISTINA FELIPE [facility] [id number] [facility] 2024-11-07 00:00:00 2024-11-07 15:53:05 Telephone Kristina Alvarez [facility] ESTATE [facility] [id number] [facility] 2024-11-03 09:15:00 2024-11-03 10:55:29 Outpatient KRISTINA FELIPE [facility] [id number] [facility] 2024-11-03 09:15:00 2024-11-03 10:55:29 Initial Visit Kristina Alvarez [facility]NAL [facility] CHILD [facility] [id number] [facility] 2023-10-20 00:00:00 2023-10-20 00:00:00 Outpatient MONIU_SHENG_Y AW [facility]O [facility] [id number] [facility] 2021-07-29 17:49:00 2021-07-29 18:23:00 Emergency X JERMAIN ALBERT [facility] ERT [id number] [facility] 2021-07-29 17:49:00 2021-07-29 18:23:00 Emergency Aly Albert [facility] [id number] [facility] 2021-07-29 00:00:00 2021-07-29 00:00:00 Orders Only Doctor Unassigned, [place] [facility] [id number] [facility] 2019-04-23 14:28:13 2019-04-23 17:58:00 Emergency X PATTIE DAMON [facility] ERT [id number] [facility] Results Test Description Test Time Test Comments Results Result Co mments Source [facility] w/o Specific [id number] 14:37:00* Test Item Value Reference Range Interpretation [...] = [id number]) Trace Negative - Negati ve [facility] Notes Date/Time Note Provider Source 2024-11-07 15:51:31 Pt informed of results and new orders. Pt informed of false positive and repeat testing will be done at next visit, verbalized understanding. Vaishnavi Cole LVN [facility] 2024-11-07 13:29:30 Please let patient know I erx ampicillin for GBS uti and iron supplement for anemia. She also has false positive syphilis since further testing was negative. Will repeat test next visit. [facility]
[2024-11-11 13:56] LABS: Absolute Basophils 0.1 K/uL (0-0.5); Absolute Eosinophils 0.1 K/uL (0-0.5); Absolute Lymphocytes (CBC) 1.5 K/uL (0.7-4.9); Absolute Monocytes 0.5 K/uL (0.1-1.3); Absolute Neutrophil 7.8 K/uL (1.8-8.0); Basophils % 0.5 % (0-1.3); Eosinophils % 0.5 % (0-4.4); Hematocrit 33.2 % (36.0-45.0); Hemoglobin 10.3 g/dL (12.0-15.0); Lymphocytes % 14.8 % (15.3-44.8); MCH 20.8 pg (27.0-35.0); MCHC 31.1 g/dL (32.0-36.0); MCV 66.9 fL (80-100); MPV 6.6 fL (7.6-11.3); Monocytes % 4.7 % (3.3-12.3); Neutrophils % 79.5 % (41.7-73.7); Platelets 448 thou/uL (152-406); RBC Red Blood Cell Count 4.97 M/uL (3.86-4.86); Red Cell Distribution Width 19.9 % (12.1-15.2)
[2024-11-11 14:06] LABS: Specific Gravity > 1.030 (1.005-1.030)
[2024-11-11 14:07] LABS: Specific Gravity > 1.030 (1.005-1.030); Urine Bacteria <20 /HPF (<20); Urine Bilirubin NEGATIVE (Negative); Urine Blood Negative (Negative); Urine Clarity Extremely Turbid (Clear); Urine Color Dark-Yellow (Yellow); Urine Crystals Unidentified Few /HPF (None Seen); Urine Culture Reflex Order NOT NEEDED; Urine Glucose NEGATIVE (Negative); Urine Ketones NEGATIVE (Negative); Urine Microscopic Reflex YN ORDER UMIC; Urine Mucus 4+ /HPF (None Seen); Urine Nitrite NEGATIVE (Negative); Urine Protein 1+ (Negative); Urine RBC <5 /HPF (None Seen); Urine Urobilinogen Normal (Normal); Urine WBC <5 /HPF (<5); Urine Yeast (Budding) Trace /HPF (None Seen); Urine pH 5.5 (5.0-7.0)
[2024-11-11 14:30] LABS: Anion Gap 6.3 mEq/L (5.0-15.0); Potassium 3.3 mEq/L (3.5-5.1)
--- NOTE | 2024-11-11 15:04 | RAD REPORT ---
[id number] Trimest Single 1St Fetus CLINICAL HISTORY: with abdominal pain TECHNIQUE: Transabdominal sonography FINDINGS: The uterus measures 13 x 5 x 7 cm. 6 cm hypoechoic mass abutting the uterus presumably a subserosal f ibroid. A gestational sac is present within the endometrium. Within this is a pole crown rump length 1. 5 cm. Cardiac activity 172 bpm. Right and left adnexa unremarkable. Right and left ovaries unremarkable No significant free fluid IMPRESSION: Single live intrauterine with an estimated gestational age 8 weeks 0 days KATERYNA 06/23/2025
[2024-11-11] MEDS ORDERED: POTASSIUM 25 MEQ EFFERV TAB ONE (15:07)
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
[2024-11-11 15:32] VITALS: BP 109/67; TEMP 97.9; O2SAT 99
[2024-11-11 17:16] LABS: Anisocytosis 1+; Blood Morphology Comment NOTED (NOT SEEN); Platelet Estimate INCR; Poikilocytosis SLIGHT; White Blood Cell Scan OK (OK)
[2024-11-11 17:17] LABS: Hypochromasia 1+; Microcytosis SLIGHT; Ovalocytes SLIGHT
== END 2024-11-11 15:23 | disposition home or self-care (01) ==
LOC: ER 12:54
DX: Z04.1 Encounter for examination and observation following transport accident (principal); O26.891 Other specified pregnancy related conditions, first trimester; Z3A.08 8 weeks gestation of pregnancy; V49.49XA Driver injured in collision with other motor vehicles in traffic accident, initial encounter
CPT/HCPCS: 36415; 76801; 80048; 81001; 81025; 84702; 85025; 86900; 86901; 99284